=== PATIENT | male | born 1965 | race Asian ===

== ENCOUNTER 2019-09-18 10:03 | Inpatient (IN) | payer MEDICAID ==
[~2019-09-18] VITALS: Ht 170.2 cm; Wt 81.4 kg
--- NOTE | 2019-09-18 09:52 | Emergency Room Report ---
History of Present Illness General Source: Patient, EMS Present Illness HPI Patient is a 53-year-old male presents after increased cough and difficulty with breathing. Patient had onset of symptoms approximately 2 weeks. He had no prior medical history. Does not take any medications regularly. Worsening difficulty breathing with supine position. Brought in by EMS.No recent travel. Allergies: Coded Allergies: No Known Allergies (Unverified , 09/18/19) Patient History Reviewed Nursing Documentation: PMH: Agreed; PSxH: Agreed Review of Systems All Other Systems: negative except mentioned in HPI Physical Exam Sp02 EP Interpretation: reviewed, normal General Appearance: normal inspection, well appearing, no apparent distress, alert, GCS 15, non-toxic Head: atraumatic ENT: normal ENT inspection, hearing grossly normal, normal voice Neck: normal inspection, full range of motion, supple, no bony tend Respiratory: no retraction, crackles - bibasilar Cardiovascular #1: no edema, tachycardia Gastrointestinal: normal inspection, normal bowel sounds, non tender, soft, no guarding, no hernia Genitourinary: no CVA tenderness Musculoskeletal: normal inspection, back normal, normal range of motion Neurologic: alert, responsive, speech normal, normal inspection Psychiatric: normal inspection, judgement/insight normal, mood/affect normal Medical Decision Making Diagnostic Impression: Primary Impression: New onset of congestive heart failure Additional Impression: Pleural effusion ER Course Patient presented for cough and increased difficulty with breathing. Differential diagnosis include was not limited to pneumonia, bronchitis, interstitial lung disease, viral respiratory infection among others. Because of complexity of patient's case laboratory tests and imaging studies were ordered. Patient did not have any recent travel. Respiratory infection versus a congestive heart failure. Broad work-up will be initiated. Chest x-ray 1 view read by radiology showed small pleural effusion as well as cardiomegaly. Patient's lung exam did show some bibasilar crackles consistent with new onset CHF. Troponin was noted to be negative. Patient given diuretics as well as nitroglycerin paste. Patient be admitted for further work-up.Dr. Philip Lin was contacted for inpatient management. Labs Test 09/18/19 10:10 White Blood Count 9.1 K/UL (4.8-10.8) Red Blood Count 5.06 M/UL (4.70-6.10) Hemoglobin 15.7 G/DL (14.2-18.0) Hematocrit 47.1 % (42.0-52.0) Mean Corpuscular Volume 93 FL (80-99) Mean Corpuscular Hemoglobin 31.0 PG (27.0-31.0) Mean Corpuscular Hemoglobin Concent 33.3 G/DL (32.0-36.0) Red Cell Distribution Width 11.5 % (11.6-14.8) Platelet Count 250 K/UL (150-450) Mean Platelet Volume 6.0 FL (6.5-10.1) Neutrophils (%) (Auto) 55.9 % (45.0-75.0) Lymphocytes (%) (Auto) 29.0 % (20.0-45.0) Monocytes (%) (Auto) 9.9 % (1.0-10.0) Eosinophils (%) (Auto) 3.5 % (0.0-3.0) Basophils (%) (Auto) 1.6 % (0.0-2.0) Prothrombin Time 11.0 SEC (9.30-11.50) Prothromb Time International Ratio 1.0 (0.9-1.1) Activated Partial Thromboplast Time 33 SEC (23-33) Sodium Level 140 MMOL/L (136-145) Potassium Level 4.3 MMOL/L (3.5-5.1) Chloride Level 105 MMOL/L (98-107) Carbon Dioxide Level 28 MMOL/L (21-32) Anion Gap 7 mmol/L (5-15) Blood Urea Nitrogen 16 mg/dL (7-18) Creatinine 1.3 MG/DL (0.55-1.30) Estimat Glomerular Filtration Rate 58.2 mL/min (>60) Glucose Level 116 MG/DL (74-106) Lactic Acid Level 1.30 mmol/L (0.4-2.0) Calcium Level 8.6 MG/DL (8.5-10.1) Total Bilirubin 1.2 MG/DL (0.2-1.0) Direct Bilirubin 0.3 MG/DL (0.0-0.3) Aspartate Amino Transf (AST/SGOT) 50 U/L (15-37) Alanine Aminotransferase (ALT/SGPT) 57 U/L (12-78) Alkaline Phosphatase 88 U/L (46-116) Total Creatine Kinase 114 U/L (26-308) Creatine Kinase MB 1.9 NG/ML (0.0-3.6) Creatine Kinase MB Relative Index 1.6 Troponin I 0.014 ng/mL (0.000-0.056) Pro-B-Type Natriuretic Peptide 2168 pg/mL (0-125) Total Protein 7.4 G/DL (6.4-8.2) Albumin 3.6 G/DL (3.4-5.0) Globulin 3.8 g/dL Albumin/Globulin Ratio 0.9 (1.0-2.7) EKG Diagnostic Results Rate: tachycardiac Rhythm: NSR ST Segments: no acute changes Status: improved Disposition: ADMITTED INPATIENT Condition: Stable Elmer Ledezma MD Sep 18, 2019 09:52
--- NOTE | 2019-09-18 09:57 | NUR ---
ED Nurse Note: Pt brought into ED by ambulance w/ c/o SOB. Pt has had cold for 2 weeks w/ congestion, non-productive cough, sore throat. Pt says his SOB started last night and was worse this morning. Pt denies nausea or vomiting or diarrhea. Pt has not been to [place]. Pt set up on monitor.
[2019-09-18] MEDS ORDERED: Guaifenesin/DM 10ml syrup ORAL ONE (10:15)
[2019-09-18 10:17] VITALS: BP 149/99
[2019-09-18 10:29] LABS: BASOPHILS % (AUTO) 1.6 % (0.0-2.0); EOSINOPHILS % (AUTO) 3.5 % (0.0-3.0); HEMATOCRIT 47.1 % (42.0-52.0); HEMOGLOBIN 15.7 G/DL (14.2-18.0); MEAN CORPUSCULAR VOLUME 93 FL (80-99); MONOCYTES % (AUTO) 9.9 % (1.0-10.0); NEUTROPHILS % (AUTO) 55.9 % (45.0-75.0); PLATELET COUNT 250 K/UL (150-450); RED BLOOD COUNT 5.06 M/UL (4.70-6.10); RED CELL DISTRIBUTION WIDTH 11.5 % (11.6-14.8); WHITE BLOOD COUNT 9.1 K/UL (4.8-10.8)
[2019-09-18 10:45] LABS: ANION GAP 7 mmol/L (5-15); BLOOD UREA NITROGEN 16 mg/dL (7-18); CALCIUM 8.6 MG/DL (8.5-10.1); CARBON DIOXIDE 28 MMOL/L (21-32); CHLORIDE 105 MMOL/L (98-107); CREATININE 1.3 MG/DL (0.55-1.30); POTASSIUM 4.3 MMOL/L (3.5-5.1); SODIUM 140 MMOL/L (136-145)
[2019-09-18 11:00] LABS: ALANINE AMINOTRANSFERASE 57 U/L (12-78); ALBUMIN 3.6 G/DL (3.4-5.0); ALBUMIN/GLOBULIN RATIO 0.9 (1.0-2.7); ALKALINE PHOSPHATASE 88 U/L (46-116); ASPARTATE AMINO TRANSFERASE 50 U/L (15-37); BILIRUBIN,TOTAL 1.2 MG/DL (0.2-1.0); CKMB 1.9 NG/ML (0.0-3.6); CREATINE KINASE 114 U/L (26-308)
[2019-09-18 11:02] LABS: BILIRUBIN,DIRECT 0.3 MG/DL (0.0-0.3)
--- NOTE | 2019-09-18 11:11 | Diagnostic Imaging Report ---
EXAM: XR Chest, 1 View CLINICAL HISTORY: SOB TECHNIQUE: Frontal view of the chest. COMPARISON: None FINDINGS: Hardware: None. Lungs/pleura: Pulmonary vasculature congestion. Small left pleural effusion. No focal consolidation. Heart/mediastinum: Enlarged cardiomediastinal silhouette. Soft tissues: Unremarkable. Bones: No acute fracture. Upper abdomen: Normal. IMPRESSION: Enlargement of the cardiomediastinal silhouette with pulmonary vasculature congestion and small left pleural effusion.
[2019-09-18] MEDS ORDERED: Nitroglycerin 2% oint pkt TOPIC ONE (11:15)
--- NOTE | 2019-09-18 12:03 | NUR ---
ED Nurse Note: SENT DOWN URINE SPECIMEN. TURNED OFF LIGHT TO REDUCE ENVIRONMENTAL STIMULUS TO PROMOTE RELAXATION. VSS. NO S/S OF ACUTE DISTRESS NOTED AT THIS TIME
[2019-09-18 12:31] LABS: APPEARANCE,URINE CLEAR; BILIRUBIN, URINE NEGATIVE (NEGATIVE); GLUCOSE, URINE (UA) NEGATIVE (NEGATIVE); KETONES,URINE NEGATIVE (NEGATIVE); LEUKOCYTE ESTERASE ,URINE NEGATIVE (NEGATIVE); NITRITE,URINE NEGATIVE (NEGATIVE); PH,URINE 6 (4.5-8.0); PROTEIN,URINE 2+ (NEGATIVE); UROBILINOGEN,URINE NORMAL MG/DL (0.0-1.0)
[2019-09-18 12:32] LABS: COLOR,URINE YELLOW
--- NOTE | 2019-09-18 13:40 | NUR ---
ED Nurse Note: Pt cleared by MD to be transferred. Pt is alert and oriented, set up on monitor. Pt took all belongings. TERESA Topete received her.
--- NOTE | 2019-09-18 13:50 | NUR ---
NURSE NOTES: Patient was admitted from ED via gurney. AAO x 4. Bulgarian Speaking. On RA. No c/o of distress/pain at this moment. IV on LAC 20g noted. Belongings were accounted. Orientation on new unit given. Paged dr. Lin for admission orders and awaiting for return call. Side rails x 2. Call light within reach. Will continue to monitor
--- NOTE | 2019-09-18 14:28 | Cardiology Progress Note ---
Subjective Subjective [id number] Objective Last 24 Hour Vital Signs Date Time Temp Pulse Resp B/P (MAP) Pulse Ox O2 Delivery O2 Flow Rate FiO2 09/18/19 14:00 Room Air 09/18/19 13:40 98.5 95 16 122/76 99 Room Air 09/18/19 11:23 156/105 09/18/19 10:17 103 24 Room Air 99 09/18/19 10:17 98.8 103 24 149/99 99 Room Air 09/18/19 09:47 98.8 106 22 156/105 (122) 100 Room Air Laboratory Tests Test 09/18/19 10:10 09/18/19 12:02 White Blood Count 9.1 K/UL (4.8-10.8) Red Blood Count 5.06 M/UL (4.70-6.10) Hemoglobin 15.7 G/DL (14.2-18.0) Hematocrit 47.1 % (42.0-52.0) Mean Corpuscular Volume 93 FL (80-99) Mean Corpuscular Hemoglobin 31.0 PG (27.0-31.0) Mean Corpuscular Hemoglobin Concent 33.3 G/DL (32.0-36.0) Red Cell Distribution Width 11.5 % (11.6-14.8) L Platelet Count 250 K/UL (150-450) Mean Platelet Volume 6.0 FL (6.5-10.1) L Neutrophils (%) (Auto) 55.9 % (45.0-75.0) Lymphocytes (%) (Auto) 29.0 % (20.0-45.0) Monocytes (%) (Auto) 9.9 % (1.0-10.0) Eosinophils (%) (Auto) 3.5 % (0.0-3.0) H Basophils (%) (Auto) 1.6 % (0.0-2.0) Prothrombin Time 11.0 SEC (9.30-11.50) Prothromb Time International Ratio 1.0 (0.9-1.1) Activated Partial Thromboplast Time 33 SEC (23-33) Sodium Level 140 MMOL/L (136-145) Potassium Level 4.3 MMOL/L (3.5-5.1) Chloride Level 105 MMOL/L (98-107) Carbon Dioxide Level 28 MMOL/L (21-32) Anion Gap 7 mmol/L (5-15) Blood Urea Nitrogen 16 mg/dL (7-18) Creatinine 1.3 MG/DL (0.55-1.30) Estimat Glomerular Filtration Rate 58.2 mL/min (>60) Glucose Level 116 MG/DL (74-106) H Lactic Acid Level 1.30 mmol/L (0.4-2.0) Calcium Level 8.6 MG/DL (8.5-10.1) Total Bilirubin 1.2 MG/DL (0.2-1.0) H Direct Bilirubin 0.3 MG/DL (0.0-0.3) Aspartate Amino Transf (AST/SGOT) 50 U/L (15-37) H Alanine Aminotransferase (ALT/SGPT) 57 U/L (12-78) Alkaline Phosphatase 88 U/L (46-116) Total Creatine Kinase 114 U/L (26-308) Creatine Kinase MB 1.9 NG/ML (0.0-3.6) Creatine Kinase MB Relative Index 1.6 Troponin I 0.014 ng/mL (0.000-0.056) Pro-B-Type Natriuretic Peptide 2168 pg/mL (0-125) H Total Protein 7.4 G/DL (6.4-8.2) Albumin 3.6 G/DL (3.4-5.0) Globulin 3.8 g/dL Albumin/Globulin Ratio 0.9 (1.0-2.7) L Urine Color Yellow Urine Appearance Clear Urine pH 6 (4.5-8.0) Urine Specific [place] 1.015 (1.005-1.035) Urine Protein 2+ (NEGATIVE) H Urine Glucose (UA) Negative (NEGATIVE) Urine Ketones Negative (NEGATIVE) Urine Blood 2+ (NEGATIVE) H Urine Nitrite Negative (NEGATIVE) Urine Bilirubin Negative (NEGATIVE) Urine Urobilinogen Normal MG/DL (0.0-1.0) Urine Leukocyte Esterase Negative (NEGATIVE) Urine RBC 0-2 /HPF (0 - 0) H Urine WBC 0-2 /HPF (0 - 0) Urine Squamous Epithelial Cells Occasional /LPF Urine Bacteria None /HPF (NONE) Microbiology Date/Time Source Procedure Growth Status 09/18/19 10:10 Nasal Nares - Final Complete 09/18/19 10:10 Nasal Nares - Final Complete Zahra Solomon MD Sep 18, 2019 14:28
[2019-09-18] MEDS: Aspirin Baby 81mg ORAL SCH (14:44)
[2019-09-18] MEDS: Lisinopril 2.5mg tab ORAL SCH (14:44)
[2019-09-18] MEDS ORDERED: Albuterol/Ipratropium 3ml neb HHN PRN (15:30)
[2019-09-18] MEDS: Docusate 100mg cap ORAL SCH (17:24)
[2019-09-18 17:51] LABS: CHOLESTEROL 166 MG/DL (< 200); HDL CHOLESTEROL 32 MG/DL (40-60); TRIGLYCERIDES 129 MG/DL (30-150)
--- NOTE | 2019-09-18 18:15 | Consultation ---
DATE OF CONSULTATION: 09/18/2019 CARDIOLOGY CONSULTATION CONSULTING PHYSICIAN: Zahra Solomon M.D. REASON FOR EVALUATION: Shortness of breath. This was done as a coverage for Dr. Abhijit Robledo. HISTORY OF PRESENT ILLNESS: History of present illness taken from the patient. The patient reported that he had a cold 2 weeks ago with fever and probably some mild cough, but then since yesterday, he could not breathe. He had shortness of breath. He was sitting up in of sleeping. He denied any chest pain. There is no syncope. There are no previous similar episodes. The patient is a poor historian. HABITS: He smokes 1 pack a day. No history of drinking alcohol or drug abuse. ALLERGIES: None reported. MEDICATIONS: None. SOCIAL HISTORY: He was not regularly following by his doctor. REVIEW OF SYSTEMS: Otherwise is negative. There is no syncope. There is no wheezing. There is no hemoptysis. There is no fever at the present time. No chills. No rash. No abdominal pain. PHYSICAL EXAMINATION: GENERAL: The patient is resting. He appears to be pretty comfortable. VITAL SIGNS: His blood pressure is 150/100 initially and then it went down to 122/76. His heart rate went down to 95 from 103. He was afebrile. Oxygen saturation on room air is 99%. HEENT: PERRLA. EOMI. NECK: Supple. He has jugular venous distention approximately 10 cm above the angle of Rashaad at 30 degrees. LUNGS: He has crackles bilaterally at bases mostly. There is no wheezing. HEART: His PMI is in the sixth intercostal space in the anterior axillary line. His heart rate is high. There is positive S4 and there is physiologic split accented A2. ABDOMEN: Soft. There is no liver palpable. No hepatosplenomegaly. No masses. Bowel sounds are present. EXTREMITIES: Lower extremities, no edema. Distal pulses palpable. LABORATORY AND DIAGNOSTIC DATA: His EKG shows LVH, sinus rhythm. Chest x-ray showed cardiomegaly with pulmonary venous congestion. His proBNP was 2168. Troponin was 0.014. Rest of his chemistry was unremarkable. His glucose was 116 and lactic acid was 1.3. His white count was 9, hemoglobin 15.7, and platelets were 250,000. IMPRESSION AND RECOMMENDATION: This patient has shortness of breath, most likely due to heart failure new-onset. The patient also has clinical evidence of heart failure and chest x-ray confirmation. The etiology is not clear. He might have uncontrolled hypertension for a while because he was not following it. He might have coronary artery disease as well. We are going to check his lipid panel, going to continue diuresis, going to start him on NAMITA inhibitor and give him aspirin, and will go from there. Thank you for your consultation. Zahra Solomon M.D. DR: Cassy JOB#: [id number] CC:
--- NOTE | 2019-09-18 19:23 | NUR ---
HAND-OFF: Report given to TERESA Grace.
--- NOTE | 2019-09-18 19:30 | NUR ---
NURSE NOTES: Patient was received from TERESA Woods. Pt is AAO x 4. Hebrew Speaking. On RA. No c/o of distress/pain at this moment. IV on LAC 20g patent. Side rails x 2. Call light within reach. Will continue to monitor
--- NOTE | 2019-09-18 19:41 | Pulmonology Progress Note ---
Assessment/Plan Assessment/Plan Pulmonary Consultation HPI Patient is a 53-year-old man admitted with new onset Congestive Heart Failure, complained of increased cough and difficulty with breathing, started after URTI. Patient had onset of symptoms approximately 2 weeks. He had no prior medical history. Does not take any medications regularly. Worsening difficulty breathing with supine position. No recent travel. Denies chest pain, no hemoptysis. Allergies: No Known Allergies Past Medical History: None noted All Other Systems: negative except mentioned in HPI Physical Exam Vital Signs Noted General Appearance: normal inspection, well appearing, no apparent distress, alert, GCS 15, non-toxic Head: atraumatic ENT: normal ENT inspection, hearing grossly normal, normal voice, moist mm Neck: normal inspection, no masses, supple, no tenderness, elevated JVP Respiratory: no retraction, crackles - bibasilar Cardiovascular: HS1, HS2 normal, HS4, tachycardia Gastrointestinal: normal inspection, normal bowel sounds, non tender, soft, no guarding, no hernia Genitourinary: no CVA tenderness Musculoskeletal: normal inspection, back normal, normal range of motion, no edema Neurologic: alert, responsive, speech normal, normal inspection Impression: New onset of congestive heart failure Recent URTI No focal infiltrates on CXR Small left pleural effusion Plan Diurese PRN O2 PRN Aferload reduction per Cardiology Viral upper respiratory analysis HHN PRN PO Doxycline given recent URTI Monitor labs PPX Cardiac Diet Labs Test 09/18/19 10:10 White Blood Count 9.1 K/UL (4.8-10.8) Red Blood Count 5.06 M/UL (4.70-6.10) Hemoglobin 15.7 G/DL (14.2-18.0) Hematocrit 47.1 % (42.0-52.0) Mean Corpuscular Volume 93 FL (80-99) Mean Corpuscular Hemoglobin 31.0 PG (27.0-31.0) Mean Corpuscular Hemoglobin Concent 33.3 G/DL (32.0-36.0) Red Cell Distribution Width 11.5 % (11.6-14.8) Platelet Count 250 K/UL (150-450) Mean Platelet Volume 6.0 FL (6.5-10.1) Neutrophils (%) (Auto) 55.9 % (45.0-75.0) Lymphocytes (%) (Auto) 29.0 % (20.0-45.0) Monocytes (%) (Auto) 9.9 % (1.0-10.0) Eosinophils (%) (Auto) 3.5 % (0.0-3.0) Basophils (%) (Auto) 1.6 % (0.0-2.0) Prothrombin Time 11.0 SEC (9.30-11.50) Prothromb Time International Ratio 1.0 (0.9-1.1) Activated Partial Thromboplast Time 33 SEC (23-33) Sodium Level 140 MMOL/L (136-145) Potassium Level 4.3 MMOL/L (3.5-5.1) Chloride Level 105 MMOL/L (98-107) Carbon Dioxide Level 28 MMOL/L (21-32) Anion Gap 7 mmol/L (5-15) Blood Urea Nitrogen 16 mg/dL (7-18) Creatinine 1.3 MG/DL (0.55-1.30) Estimat Glomerular Filtration Rate 58.2 mL/min (>60) Glucose Level 116 MG/DL (74-106) Lactic Acid Level 1.30 mmol/L (0.4-2.0) Calcium Level 8.6 MG/DL (8.5-10.1) Total Bilirubin 1.2 MG/DL (0.2-1.0) Direct Bilirubin 0.3 MG/DL (0.0-0.3) Aspartate Amino Transf (AST/SGOT) 50 U/L (15-37) Alanine Aminotransferase (ALT/SGPT) 57 U/L (12-78) Alkaline Phosphatase 88 U/L (46-116) Total Creatine Kinase 114 U/L (26-308) Creatine Kinase MB 1.9 NG/ML (0.0-3.6) Creatine Kinase MB Relative Index 1.6 Troponin I 0.014 ng/mL (0.000-0.056) Pro-B-Type Natriuretic Peptide 2168 pg/mL (0-125) Total Protein 7.4 G/DL (6.4-8.2) Albumin 3.6 G/DL (3.4-5.0) Globulin 3.8 g/dL Albumin/Globulin Ratio 0.9 (1.0-2.7) EKG: Rate: tachycardiac Rhythm: NSR ST Segments: no acute changes CXR: Cardiomegaly, Pulmonary Vascular congestion, small left effusion Subjective ROS Limited/Unobtainable: No Respiratory: Reports: shortness of breath Allergies: Coded Allergies: No Known Allergies (Unverified , 09/18/19) Objective Last 24 Hour Vital Signs Date Time Temp Pulse Resp B/P (MAP) Pulse Ox O2 Delivery O2 Flow Rate FiO2 09/18/19 16:00 89 09/18/19 16:00 1.0 09/18/19 14:44 135/80 09/18/19 14:00 Room Air 09/18/19 13:40 98.5 95 16 122/76 99 Room Air 09/18/19 11:23 156/105 09/18/19 10:17 103 24 Room Air 99 09/18/19 10:17 98.8 103 24 149/99 99 Room Air 09/18/19 09:47 98.8 106 22 156/105 (122) 100 Room Air Microbiology Date/Time Source Procedure Growth Status 09/18/19 15:50 Nasal Nares - Final Complete 09/18/19 15:50 Nasal Nares - Final Complete 09/18/19 10:10 Nasal Nares - Final Complete 09/18/19 10:10 Nasal Nares - Final Complete Laboratory Tests 09/18/19 10:10: White Blood Count 9.1, Red Blood Count 5.06, Hemoglobin 15.7, Hematocrit 47.1, Mean Corpuscular Volume 93, Mean Corpuscular Hemoglobin 31.0, Mean Corpuscular Hemoglobin Concent 33.3, Red Cell Distribution Width 11.5L, Platelet Count 250, Mean Platelet Volume 6.0L, Neutrophils (%) (Auto) 55.9, Lymphocytes (%) (Auto) 29.0, Monocytes (%) (Auto) 9.9, Eosinophils (%) (Auto) 3.5H, Basophils (%) (Auto ) 1.6, Prothrombin Time 11.0, Prothromb Time International Ratio 1.0, Activated Partial Thromboplast Time 33, Sodium Level 140, Potassium Level 4.3, Chloride Level 105, Carbon Dioxide Level 28, Anion Gap 7, Blood Urea Nitrogen 16, Creatinine 1.3, Estimat Glomerular Filtration Rate 58.2, Glucose Level 116H, Lactic Acid Level 1.30, Calcium Level 8.6, Total Bilirubin 1.2H, Direct Bilirubin 0.3, Aspartate Amino Transf (AST/SGOT) 50H, Alanine Aminotransferase ( ALT/SGPT) 57, Alkaline Phosphatase 88, Total Creatine Kinase 114, Creatine Kinase MB 1.9, Creatine Kinase MB Relative Index 1.6, Troponin I 0.014, Pro-B- Type Natriuretic Peptide 2168H, Total Protein 7.4, Albumin 3.6, Globulin 3.8, Albumin/Globulin Ratio 0.9L 09/18/19 12:02: Urine Color Yellow, Urine Appearance Clear, Urine pH 6, Urine Specific [place] 1.015, Urine Protein 2+H, Urine Glucose (UA) Negative, Urine Ketones Negative, Urine Blood 2+H, Urine Nitrite Negative, Urine Bilirubin Negative, Urine Urobilinogen Normal, Urine Leukocyte Esterase Negative, Urine RBC 0-2H, Urine WBC 0-2, Urine Squamous Epithelial Cells Occasional, Urine Bacteria None 09/18/19 17:08: Troponin I 0.024, Triglycerides Level 129, Cholesterol Level 166, LDL Cholesterol 114H, HDL Cholesterol 32L, Cholesterol/HDL Ratio 5.2H Current Medications Medications (Trade) Dose Ordered Sig/Livier Route PRN Reason Start Time Stop Time Status Last Admin Dose Admin Acetaminophen (Tylenol) 650 mg Q4H PRN ORAL Mild Pain/Temp > 100.5 09/18/19 17:45 10/18/19 17:44 09/18/19 17:59 Albuterol/ Ipratropium (Albuterol/ Ipratropium) 3 ml Q6H PRN HHN Shortness of Breath 09/18/19 15:30 09/23/19 15:29 Aspirin (ASA) 81 mg DAILY ORAL 09/18/19 14:30 10/18/19 14:29 09/18/19 14:44 Docusate Sodium (Colace) 100 mg TWICE A DAY ORAL 09/18/19 18:00 10/18/19 17:59 Furosemide (Lasix) 40 mg DAILY IV 09/19/19 09:00 10/19/19 08:59 Heparin Sodium (Porcine) (Heparin 5000 units/ml) 5,000 units EVERY 12 HOURS SUBQ 09/18/19 21:00 10/18/19 20:59 Lisinopril (ZestriL) 2.5 mg DAILY ORAL 09/18/19 14:30 10/18/19 14:29 09/18/19 14:44 Cole Ponce MD Sep 18, 2019 19:41
[2019-09-18 20:00] VITALS: BP 126/91
[2019-09-18] MEDS: Heparin 5000 units/ml inj SUBQ SCH (20:44)
[2019-09-19] VITALS: BP 128/92
[2019-09-19 01:30] LABS: ANION GAP 10 mmol/L (5-15); BLOOD UREA NITROGEN 19 mg/dL (7-18); CALCIUM 8.4 MG/DL (8.5-10.1); CARBON DIOXIDE 27 MMOL/L (21-32); CHLORIDE 104 MMOL/L (98-107); CREATININE 1.3 MG/DL (0.55-1.30); POTASSIUM 3.7 MMOL/L (3.5-5.1); SODIUM 141 MMOL/L (136-145)
[2019-09-19 01:32] LABS: BASOPHILS % (AUTO) 1.2 % (0.0-2.0); EOSINOPHILS % (AUTO) 4.5 % (0.0-3.0); HEMATOCRIT 44.1 % (42.0-52.0); HEMOGLOBIN 15.3 G/DL (14.2-18.0); MEAN CORPUSCULAR VOLUME 91 FL (80-99); MONOCYTES % (AUTO) 10.4 % (1.0-10.0); PLATELET COUNT 231 K/UL (150-450); RED BLOOD COUNT 4.83 M/UL (4.70-6.10); RED CELL DISTRIBUTION WIDTH 11.3 % (11.6-14.8); WHITE BLOOD COUNT 9.4 K/UL (4.8-10.8)
[2019-09-19 04:00] VITALS: BP 146/97
--- NOTE | 2019-09-19 07:50 | NUR ---
HAND-OFF: Report given to Chuck Baugh RN.
--- NOTE | 2019-09-19 07:53 | NUR ---
NURSE NOTES: Received pt in bed, sleeping. On NC 2L/min. No s/s of distress/pain. IV on LAC 20g noted. Side rails x2. Bed in the lowest and locked. Call light within reach. Will continue to monitor
[2019-09-19 08:00] VITALS: BP 124/93
--- NOTE | 2019-09-19 08:50 | CDS Physician Query ---
Clarification is required for compliance, coding accuracy, and to reflect severity of illness for this patient Dear Dr. Solomon Date: 09.19.19 CDS: Fariha Edwards "Heart Failure / CHF" documented in the cardiology progress note. Patient given 40 mg of IV Lasix. Please Clarify: Acuity [ ] Acute [ ] Chronic [ ] Acute on Chronic Type [ ] Systolic [ ] Diastolic [ ] Systolic & Diastolic (Combined) [ ] Other: Present on Admission: [ ] Yes [ ] No [ ] Clinically Undetermined Physician signature Date Please also document in your Progress Notes and/or Discharge Summary and indicate if the condition was present on admission. ALEJANDRINAD
[2019-09-19] MEDS: Lisinopril 2.5mg tab ORAL SCH (09:06)
[2019-09-19] MEDS: Docusate 100mg cap ORAL SCH ×2 (09:06→17:18)
[2019-09-19] MEDS: Aspirin Baby 81mg ORAL SCH (09:07)
[2019-09-19] MEDS: Heparin 5000 units/ml inj SUBQ SCH ×2 (09:08→21:42)
--- NOTE | 2019-09-19 11:40 | NUR ---
PT EVALUATION/DISCHARGE NOTE Patient seen for initial evaluation. Patient demonstrates independence with bed mobility, transfers and ambulation without an assistive device. Gait is steady without deviations noted. Skilled inpatient PT intervention is not indicated as patient is independent with all functional mobility. Patient discharged from PT, Chuck MOORE notified. Addendum: 09/19/19 at 1250 by MARLEE GONZALES PT Amended: Links added.
--- NOTE | 2019-09-19 11:46 | Pulmonology Progress Note ---
Assessment/Plan Problems: (1) New onset of congestive heart failure (2) Cardiac LV ejection fraction 21-30% (3) Pleural effusion (4) COPD (chronic obstructive pulmonary disease) Assessment/Plan respiratory treatment titrate fio2 to sat of 92% titrate cardiac meds might need cardiac cath. Subjective ROS Limited/Unobtainable: No Interval Events: feeling better Allergies: Coded Allergies: No Known Allergies (Unverified , 09/18/19) Objective Last 24 Hour Vital Signs Date Time Temp Pulse Resp B/P (MAP) Pulse Ox O2 Delivery O2 Flow Rate FiO2 09/19/19 09:06 124/93 09/19/19 09:00 Nasal Cannula 1.0 09/19/19 08:00 97.5 75 20 124/93 (103) 97 09/19/19 08:00 79 09/19/19 08:00 2.0 09/19/19 07:01 95 Nasal Cannula 1.0 24 09/19/19 04:00 98.5 84 20 146/97 (113) 95 09/19/19 04:00 99 09/19/19 03:29 1.0 09/19/19 00:00 1.0 09/19/19 00:00 88 09/19/19 00:00 98.6 92 18 128/92 (104) 95 09/18/19 21:00 Nasal Cannula 1.0 09/18/19 20:00 95 09/18/19 20:00 1.0 09/18/19 20:00 97.2 87 16 126/91 (103) 94 09/18/19 16:00 89 09/18/19 16:00 1.0 09/18/19 14:44 135/80 09/18/19 14:00 Room Air 09/18/19 13:40 98.5 95 16 122/76 99 Room Air Intake and Output 09/18/19 09/19/19 19:00 07:00 Intake Total 0 ml 360 ml Balance 0 ml 360 ml Intake Oral 0 ml 360 ml # Voids 4 General Appearance: WD/WN HEENT: normocephalic, atraumatic Respiratory/Chest: chest wall non-tender, lungs clear Cardiovascular: normal peripheral pulses, normal rate Abdomen: normal bowel sounds, no organomegaly Extremities: no cyanosis Skin: no rash Microbiology Date/Time Source Procedure Growth Status 09/18/19 15:50 Nasal Nares - Final Complete 09/18/19 15:50 Nasal Nares - Final Complete 09/18/19 10:10 Nasal Nares - Final Complete 09/18/19 10:10 Nasal Nares - Final Complete Laboratory Tests 09/18/19 12:02: Urine Color Yellow, Urine Appearance Clear, Urine pH 6, Urine Specific [place] 1.015, Urine Protein 2+H, Urine Glucose (UA) Negative, Urine Ketones Negative, Urine Blood 2+H, Urine Nitrite Negative, Urine Bilirubin Negative, Urine Urobilinogen Normal, Urine Leukocyte Esterase Negative, Urine RBC 0-2H, Urine WBC 0-2, Urine Squamous Epithelial Cells Occasional, Urine Bacteria None 09/18/19 17:08: Troponin I 0.024, Triglycerides Level 129, Cholesterol Level 166, LDL Cholesterol 114H, HDL Cholesterol 32L, Cholesterol/HDL Ratio 5.2H 09/19/19 01:00: Troponin I 0.017, White Blood Count 9.4, Red Blood Count 4.83, Hemoglobin 15.3, Hematocrit 44.1, Mean Corpuscular Volume 91, Mean Corpuscular Hemoglobin 31.6H, Mean Corpuscular Hemoglobin Concent 34.6, Red Cell Distribution Width 11.3L, Platelet Count 231, Mean Platelet Volume 5.8L, Neutrophils (%) (Auto) 52.0, Lymphocytes (%) (Auto) 32.0, Monocytes (%) (Auto) 10.4H, Eosinophils (%) (Auto) 4.5H, Basophils (%) (Auto) 1.2, Sodium Level 141, Potassium Level 3.7, Chloride Level 104, Carbon Dioxide Level 27, Anion Gap 10, Blood Urea Nitrogen 19H, Creatinine 1.3, Estimat Glomerular Filtration Rate 58.2, Glucose Level 113H, Calcium Level 8.4L 09/19/19 08:45: Troponin I 0.017 Current Medications Medications (Trade) Dose Ordered Sig/Livier Route PRN Reason Start Time Stop Time Status Last Admin Dose Admin Acetaminophen (Tylenol) 650 mg Q4H PRN ORAL Mild Pain/Temp > 100.5 09/18/19 17:45 10/18/19 17:44 09/19/19 04:02 Albuterol/ Ipratropium (Albuterol/ Ipratropium) 3 ml Q6H PRN HHN Shortness of Breath 09/18/19 15:30 09/23/19 15:29 Aspirin (ASA) 81 mg DAILY ORAL 09/18/19 14:30 10/18/19 14:29 09/19/19 09:07 Docusate Sodium (Colace) 100 mg TWICE A DAY ORAL 09/18/19 18:00 10/18/19 17:59 09/19/19 09:06 Furosemide (Lasix) 40 mg DAILY IV 09/19/19 09:00 10/19/19 08:59 09/19/19 09:06 Heparin Sodium (Porcine) (Heparin 5000 units/ml) 5,000 units EVERY 12 HOURS SUBQ 09/18/19 21:00 10/18/19 20:59 09/19/19 09:08 Lisinopril (ZestriL) 2.5 mg DAILY ORAL 09/18/19 14:30 10/18/19 14:29 09/19/19 09:06 Geneva Nieto MD Sep 19, 2019 11:46
[2019-09-19 12:00] VITALS: BP 136/93
--- NOTE | 2019-09-19 13:30 | NUR ---
CASE MANAGEMENT:REVIEW 53 YR OLD MALE PRESENTED TO ER CC: FLU LIKE SYMPTOMS AND SOB SI: NEW ONSET CHF. PLEURAL EFFUSION 98.7 106 22 156/105 100% ON RA GLUCOSE+116 TBILI+1.2 BNP+2168 IS: IV LASIX NITRO 1" TO CW ASA PO CHEST XRAY BLOOD CX : TO TELEMETRY IS: IV LASIX QD HEPARIN SQ Q12 lisinopril po qd asa po qd
--- NOTE | 2019-09-19 14:14 | Consultation ---
History of Present Illness General Date patient seen: Sep 19, 2019 Chief Complaint: Flu Like Symptoms Present Illness HPI 53 y/o M with hx of tobacco abuse presented to ED on 09/18/19 with SOB and cough. About 2 weeks ago patient had fever, mild cough. Denied chest pain, abd pain. Allergies: Coded Allergies: No Known Allergies (Unverified , 09/18/19) Medication History No Active Prescriptions or Reported Meds Patient History Healthcare decision maker Resuscitation status Full Code Advanced Directive on File Patient History Narrative Pmhx: as above Shx: He smokes 1 pack a day. No history of drinking alcohol or drug abuse. Fhx: non contributory Review of Systems All Other Systems: negative except mentioned in HPI Physical Exam Physical Exam Narrative GENERAL: The patient is resting. He appears to be pretty comfortable. HEENT: PERRLA. EOMI. NECK: Supple. He has jugular venous distention approximately 10 cm above the angle of Rashaad at 30 degrees. LUNGS: He has crackles bilaterally at bases mostly. There is no wheezing. HEART: His PMI is in the sixth intercostal space in the anterior axillary line. His heart rate is high. There is positive S4 and there is physiologic split accented A2. ABDOMEN: Soft. There is no liver palpable. No hepatosplenomegaly. No masses. Bowel sounds are present. EXTREMITIES: Lower extremities, no edema. Distal pulses palpable. Last 24 Hour Vital Signs Date Time Temp Pulse Resp B/P (MAP) Pulse Ox O2 Delivery O2 Flow Rate FiO2 09/19/19 12:00 97.3 85 20 136/93 (107) 98 09/19/19 12:00 94 09/19/19 12:00 2.0 09/19/19 09:06 124/93 09/19/19 09:00 Nasal Cannula 1.0 09/19/19 08:00 97.5 75 20 124/93 (103) 97 09/19/19 08:00 79 09/19/19 08:00 2.0 09/19/19 07:01 95 Nasal Cannula 1.0 24 09/19/19 04:00 98.5 84 20 146/97 (113) 95 09/19/19 04:00 99 09/19/19 03:29 1.0 09/19/19 00:00 1.0 09/19/19 00:00 88 09/19/19 00:00 98.6 92 18 128/92 (104) 95 09/18/19 21:00 Nasal Cannula 1.0 09/18/19 20:00 95 09/18/19 20:00 1.0 09/18/19 20:00 97.2 87 16 126/91 (103) 94 09/18/19 16:00 89 09/18/19 16:00 1.0 09/18/19 14:44 135/80 09/18/19 14:00 Room Air Intake and Output 09/18/19 09/19/19 19:00 07:00 Intake Total 0 ml 360 ml Balance 0 ml 360 ml Intake Oral 0 ml 360 ml # Voids 4 Laboratory Tests Test 09/18/19 17:08 09/19/19 01:00 09/19/19 08:45 Troponin I 0.024 ng/mL (0.000-0.056) 0.017 ng/mL (0.000-0.056) 0.017 ng/mL (0.000-0.056) Triglycerides Level 129 MG/DL (30-150) Cholesterol Level 166 MG/DL (< 200) LDL Cholesterol 114 mg/dL (<100) H HDL Cholesterol 32 MG/DL (40-60) L Cholesterol/HDL Ratio 5.2 (3.3-4.4) H White Blood Count 9.4 K/UL (4.8-10.8) Red Blood Count 4.83 M/UL (4.70-6.10) Hemoglobin 15.3 G/DL (14.2-18.0) Hematocrit 44.1 % (42.0-52.0) Mean Corpuscular Volume 91 FL (80-99) Mean Corpuscular Hemoglobin 31.6 PG (27.0-31.0) H Mean Corpuscular Hemoglobin Concent 34.6 G/DL (32.0-36.0) Red Cell Distribution Width 11.3 % (11.6-14.8) L Platelet Count 231 K/UL (150-450) Mean Platelet Volume 5.8 FL (6.5-10.1) L Neutrophils (%) (Auto) 52.0 % (45.0-75.0) Lymphocytes (%) (Auto) 32.0 % (20.0-45.0) Monocytes (%) (Auto) 10.4 % (1.0-10.0) H Eosinophils (%) (Auto) 4.5 % (0.0-3.0) H Basophils (%) (Auto) 1.2 % (0.0-2.0) Sodium Level 141 MMOL/L (136-145) Potassium Level 3.7 MMOL/L (3.5-5.1) Chloride Level 104 MMOL/L (98-107) Carbon Dioxide Level 27 MMOL/L (21-32) Anion Gap 10 mmol/L (5-15) Blood Urea Nitrogen 19 mg/dL (7-18) H Creatinine 1.3 MG/DL (0.55-1.30) Estimat Glomerular Filtration Rate 58.2 mL/min (>60) Glucose Level 113 MG/DL (74-106) H Calcium Level 8.4 MG/DL (8.5-10.1) L Microbiology Date/Time Source Procedure Growth Status 09/18/19 15:50 Nasal Nares - Final Complete 09/18/19 15:50 Nasal Nares - Final Complete Height (Feet): 5 Height (Inches): 7.00 Weight (Pounds): 150 Medications Current Medications Medications (Trade) Dose Ordered Sig/Livier Route PRN Reason Start Time Stop Time Status Last Admin Dose Admin Acetaminophen (Tylenol) 650 mg Q4H PRN ORAL Mild Pain/Temp > 100.5 09/18/19 17:45 10/18/19 17:44 09/19/19 04:02 Albuterol/ Ipratropium (Albuterol/ Ipratropium) 3 ml Q6H PRN HHN Shortness of Breath 09/18/19 15:30 09/23/19 15:29 Aspirin (ASA) 81 mg DAILY ORAL 09/18/19 14:30 10/18/19 14:29 09/19/19 09:07 Docusate Sodium (Colace) 100 mg TWICE A DAY ORAL 09/18/19 18:00 10/18/19 17:59 09/19/19 09:06 Furosemide (Lasix) 40 mg DAILY IV 09/19/19 09:00 10/19/19 08:59 09/19/19 09:06 Heparin Sodium (Porcine) (Heparin 5000 units/ml) 5,000 units EVERY 12 HOURS SUBQ 09/18/19 21:00 10/18/19 20:59 09/19/19 09:08 Lisinopril (ZestriL) 2.5 mg DAILY ORAL 09/18/19 14:30 10/18/19 14:29 09/19/19 09:06 Assessment/Plan Assessment/Plan: Abx: None Assessment: Pulmonary congestion, New- onset CHF EF 25-30% -CXR: Enlargement of the cardiomediastinal silhouette with pulmonary vasculature congestion and small left pleural effusion. Afebrile No leukocytosis Tobacco abuse Plan: -Continue to monitor off abx -f/u cx -Monitor CBC/CMP, temperatures -Cards f/u Thank you for this consultation. Will continue to follow along with you. Discussed with Macy Zhou M.D. Sep 19, 2019 14:14
--- NOTE | 2019-09-19 15:30 | History and Physical Report ---
DATE OF ADMISSION: 09/18/2019 DATE AND TIME SEEN: 09/19/2019, approximate time is 9 a.m. CONSULTANTS: 1. Geneva Nieto M.D. 2. Marcus Ponce M.D. 3. Abhijit Robledo M.D. CHIEF COMPLAINT: Shortness of breath, CHF, flu-like symptoms, pleural effusion. BRIEF HISTORY: This is a 53-year-old male who lives at home, presents with 2-day increased shortness of breath and flu-like symptoms. He came to [facility], diagnosed as above, admitted to telemetry for further care. Currently, O2 NC, calm, slight short of breath in bed. No complaint otherwise. REVIEW OF SYSTEMS: No chest pain. Slight short of breath. No nausea, vomiting, or diarrhea. PAST MEDICAL HISTORY: Includes CHF. PAST SURGICAL HISTORY: None. MEDICATIONS: Include furosemide, docusate sodium, Tylenol, albuterol, lisinopril, aspirin. ALLERGIES: Denies. SOCIAL HISTORY: Positive smoking. No alcohol. No intravenous drug abuse. FAMILY HISTORY: Noncontributory. PHYSICAL EXAMINATION: GENERAL: Calm in bed, oriented x2. Slight short of breath. O2 NC in place. VITAL SIGNS: Temperature 97 degrees, pulse 75, respirations 20, blood pressure 124/93. CARDIOVASCULAR: No murmur. LUNGS: Distant and clear. ABDOMEN: Bowel sound positive. Nontender. Nondistended. EXTREMITIES: No cyanosis, clubbing, or edema. NEUROLOGIC: The patient moves all extremities, slightly weak. LABORATORY AND DIAGNOSTIC DATA: Labs at this time show CBC is normal. BMP show BUN 19, glucose 113, calcium 8.4. INR is 1.0, PTT is 33. Urinalysis 2+ blood, 2+ protein. ASSESSMENT: 1. Shortness of breath. 2. CHF. 3. Flu-like symptoms. 4. Pleural effusion. PLAN: 1. O2, pulmonary treatment. 2. Antibiotics per Infectious Disease. 3. Cardiology followup. 4. Dietary followup. 5. PT and dietary evaluation. 6. CBC, BMP in the morning. Philip Lin D.O. DR: MIKE JOB#: [id number] CC:
[2019-09-19 16:00] VITALS: BP 128/73
--- NOTE | 2019-09-19 19:20 | NUR ---
HAND-OFF: Report given to TERESA Grace.
--- NOTE | 2019-09-19 19:30 | NUR ---
NURSE NOTES: Patient was received from TERESA Woods. Pt is AAO x 4. Czech Speaking. On RA. Pt was complaining of headache and given tylenol without relief- contacted MD for pain medication orders. IV on LAC 20g patent. Side rails x 2. Call light within reach. Will continue to monitor
[2019-09-19 20:00] VITALS: BP 109/100
--- NOTE | 2019-09-19 20:48 | Cardiology Progress Note ---
Assessment/Plan Assessment/Plan chf cm mr htn diuretic echo partiall personally reviwed acei increase dose add bb low dose Subjective Cardiovascular: Denies: chest pain, lightheadedness, palpitations Respiratory: Reports: cough; Denies: shortness of breath Gastrointestinal/Abdominal: Denies: abdominal pain Genitourinary: Denies: burning Objective Last 24 Hour Vital Signs Date Time Temp Pulse Resp B/P (MAP) Pulse Ox O2 Delivery O2 Flow Rate FiO2 09/19/19 20:10 98 Nasal Cannula 2.0 28 09/19/19 20:00 97.9 100 20 109/100 (103) 100 09/19/19 20:00 1.0 09/19/19 16:00 92 09/19/19 16:00 96.4 69 20 128/73 (91) 98 09/19/19 16:00 2.0 09/19/19 12:00 97.3 85 20 136/93 (107) 98 09/19/19 12:00 94 09/19/19 12:00 2.0 09/19/19 09:06 124/93 09/19/19 09:00 Nasal Cannula 1.0 09/19/19 08:00 97.5 75 20 124/93 (103) 97 09/19/19 08:00 79 09/19/19 08:00 2.0 09/19/19 07:01 95 Nasal Cannula 1.0 24 09/19/19 04:00 98.5 84 20 146/97 (113) 95 09/19/19 04:00 99 09/19/19 03:29 1.0 09/19/19 00:00 1.0 09/19/19 00:00 88 09/19/19 00:00 98.6 92 18 128/92 (104) 95 09/18/19 21:00 Nasal Cannula 1.0 General Appearance: no apparent distress, alert Neck: no JVD Cardiovascular: normal rate Respiratory/Chest: lungs clear Abdomen: normal bowel sounds, non tender, soft Extremities: no swelling Intake and Output 09/18/19 09/19/19 19:00 07:00 Intake Total 0 ml 360 ml Balance 0 ml 360 ml Intake Oral 0 ml 360 ml # Voids 4 Laboratory Tests Test 09/19/19 01:00 09/19/19 08:45 09/19/19 17:30 White Blood Count 9.4 K/UL (4.8-10.8) Red Blood Count 4.83 M/UL (4.70-6.10) Hemoglobin 15.3 G/DL (14.2-18.0) Hematocrit 44.1 % (42.0-52.0) Mean Corpuscular Volume 91 FL (80-99) Mean Corpuscular Hemoglobin 31.6 PG (27.0-31.0) H Mean Corpuscular Hemoglobin Concent 34.6 G/DL (32.0-36.0) Red Cell Distribution Width 11.3 % (11.6-14.8) L Platelet Count 231 K/UL (150-450) Mean Platelet Volume 5.8 FL (6.5-10.1) L Neutrophils (%) (Auto) 52.0 % (45.0-75.0) Lymphocytes (%) (Auto) 32.0 % (20.0-45.0) Monocytes (%) (Auto) 10.4 % (1.0-10.0) H Eosinophils (%) (Auto) 4.5 % (0.0-3.0) H Basophils (%) (Auto) 1.2 % (0.0-2.0) Sodium Level 141 MMOL/L (136-145) Potassium Level 3.7 MMOL/L (3.5-5.1) Chloride Level 104 MMOL/L (98-107) Carbon Dioxide Level 27 MMOL/L (21-32) Anion Gap 10 mmol/L (5-15) Blood Urea Nitrogen 19 mg/dL (7-18) H Creatinine 1.3 MG/DL (0.55-1.30) Estimat Glomerular Filtration Rate 58.2 mL/min (>60) Glucose Level 113 MG/DL (74-106) H Calcium Level 8.4 MG/DL (8.5-10.1) L Troponin I 0.017 ng/mL (0.000-0.056) 0.017 ng/mL (0.000-0.056) 0.012 ng/mL (0.000-0.056) Microbiology Date/Time Source Procedure Growth Status 09/18/19 15:50 Nasal Nares - Final Complete 09/18/19 15:50 Nasal Nares - Final Complete 09/18/19 10:10 Nasal Nares - Final Complete 09/18/19 10:10 Nasal Nares - Final Complete Abhijit Robledo MD Sep 19, 2019 20:48
[2019-09-19] MEDS ORDERED: HYDROcodone/Acetamin 5/325 tab ORAL PRN (22:00)
[2019-09-20] VITALS (7 sets, daily range): BP systolic 125–144; BP diastolic 94–105
[2019-09-20 07:24] LABS: BASOPHILS % (AUTO) 1.1 % (0.0-2.0); EOSINOPHILS % (AUTO) 5.6 % (0.0-3.0); HEMATOCRIT 44.4 % (42.0-52.0); HEMOGLOBIN 15.3 G/DL (14.2-18.0); MEAN CORPUSCULAR VOLUME 92 FL (80-99); MONOCYTES % (AUTO) 9.6 % (1.0-10.0); NEUTROPHILS % (AUTO) 49.8 % (45.0-75.0); PLATELET COUNT 246 K/UL (150-450); RED BLOOD COUNT 4.82 M/UL (4.70-6.10); RED CELL DISTRIBUTION WIDTH 11.8 % (11.6-14.8); WHITE BLOOD COUNT 8.9 K/UL (4.8-10.8)
--- NOTE | 2019-09-20 07:29 | NUR ---
HAND-OFF: Report given to TERESA Woods.
--- NOTE | 2019-09-20 07:32 | NUR ---
NURSE NOTES: Received pt in bed, AAO x 4. RA. No c/o of pain/distress. IV on LAC 20g intact and patent, with SL. Side rails x 2. Bed in the lowest and locked. Call light within reach. Will continue to monitor
[2019-09-20 08:30] LABS: ALANINE AMINOTRANSFERASE 39 U/L (12-78); ALBUMIN 3.1 G/DL (3.4-5.0); ALBUMIN/GLOBULIN RATIO 0.8 (1.0-2.7); ALKALINE PHOSPHATASE 87 U/L (46-116); ANION GAP 10 mmol/L (5-15); ASPARTATE AMINO TRANSFERASE 19 U/L (15-37); BILIRUBIN,TOTAL 0.6 MG/DL (0.2-1.0); BLOOD UREA NITROGEN 21 mg/dL (7-18); CALCIUM 8.8 MG/DL (8.5-10.1); CARBON DIOXIDE 27 MMOL/L (21-32); CHLORIDE 104 MMOL/L (98-107); CREATININE 1.4 MG/DL (0.55-1.30); POTASSIUM 3.8 MMOL/L (3.5-5.1); SODIUM 141 MMOL/L (136-145)
[2019-09-20] MEDS ORDERED: Lisinopril 10mg tab ORAL SCH (09:00)
[2019-09-20] MEDS: Docusate 100mg cap ORAL SCH ×2 (09:41→17:22)
[2019-09-20] MEDS: Aspirin Baby 81mg ORAL SCH (09:41)
[2019-09-20] MEDS: Heparin 5000 units/ml inj SUBQ SCH ×2 (09:42→21:00)
--- NOTE | 2019-09-20 09:49 | NUR ---
RADIOLOGY DEPT., CHEST X-RAY DONE.-P.DYE
--- NOTE | 2019-09-20 10:56 | Pulmonology Progress Note ---
Assessment/Plan Problems: (1) New onset of congestive heart failure (2) Cardiac LV ejection fraction 21-30% (3) Pleural effusion (4) COPD (chronic obstructive pulmonary disease) Assessment/Plan respiratory treatment titrate fio2 to sat of 92% titrate cardiac meds by cardiology Subjective ROS Limited/Unobtainable: No Interval Events: doing better Constitutional: Reports: no symptoms HEENT: Repors: no symptoms Allergies: Coded Allergies: No Known Allergies (Unverified , 09/18/19) Objective Last 24 Hour Vital Signs Date Time Temp Pulse Resp B/P (MAP) Pulse Ox O2 Delivery O2 Flow Rate FiO2 09/20/19 09:41 93 140/105 09/20/19 09:41 140/105 09/20/19 09:24 98 Nasal Cannula 2.0 28 09/20/19 08:24 Nasal Cannula 1.0 09/20/19 08:00 1.0 09/20/19 08:00 99 09/20/19 08:00 96.7 93 20 140/105 (117) 95 09/20/19 04:22 97.5 90 20 138/100 (113) 94 09/20/19 04:02 84 09/20/19 04:01 1.0 09/20/19 00:00 1.0 09/20/19 00:00 97.0 90 20 143/99 (114) 100 09/20/19 00:00 83 09/19/19 21:42 100 109/100 09/19/19 21:00 Nasal Cannula 1.0 09/19/19 20:10 98 Nasal Cannula 2.0 28 09/19/19 20:00 97.9 100 20 109/100 (103) 100 09/19/19 20:00 1.0 09/19/19 20:00 97 09/19/19 16:00 92 09/19/19 16:00 96.4 69 20 128/73 (91) 98 09/19/19 16:00 2.0 09/19/19 12:00 97.3 85 20 136/93 (107) 98 09/19/19 12:00 94 09/19/19 12:00 2.0 Intake and Output 09/19/19 09/20/19 19:00 07:00 Intake Total 480 ml 400 ml Balance 480 ml 400 ml Intake Oral 480 ml 400 ml # Voids 4 2 General Appearance: WD/WN HEENT: normocephalic, atraumatic Respiratory/Chest: chest wall non-tender, normal breath sounds Cardiovascular: normal peripheral pulses, normal rate Abdomen: normal bowel sounds, no organomegaly Neurologic/Psychiatric: cash accountant II-XII grossly normal Lymphatic: no neck adenopathy Microbiology Date/Time Source Procedure Growth Status 09/18/19 10:10 Blood Blood Culture - Preliminary NO GROWTH AFTER 24 HOURS Resulted 09/18/19 09:55 Blood Blood Culture - Preliminary NO GROWTH AFTER 24 HOURS Resulted 09/18/19 15:50 Nasal Nares - Final Complete 09/18/19 15:50 Nasal Nares - Final Complete 09/18/19 10:10 Nasal Nares - Final Complete 09/18/19 10:10 Nasal Nares - Final Complete Laboratory Tests 09/19/19 17:30: Troponin I 0.012 09/20/19 05:43: White Blood Count 8.9, Red Blood Count 4.82, Hemoglobin 15.3, Hematocrit 44.4, Mean Corpuscular Volume 92, Mean Corpuscular Hemoglobin 31.7H, Mean Corpuscular Hemoglobin Concent 34.4, Red Cell Distribution Width 11.8, Platelet Count 246, Mean Platelet Volume 5.9L, Neutrophils (%) (Auto) 49.8, Lymphocytes (%) (Auto) 34.0, Monocytes (%) (Auto) 9.6, Eosinophils (%) (Auto) 5.6H, Basophils (%) (Auto ) 1.1, Sodium Level 141, Potassium Level 3.8, Chloride Level 104, Carbon Dioxide Level 27, Anion Gap 10, Blood Urea Nitrogen 21H, Creatinine 1.4H, Estimat Glomerular Filtration Rate 53.4, Glucose Level 136H, Calcium Level 8.8, Total Bilirubin 0.6, Aspartate Amino Transf (AST/SGOT) 19, Alanine Aminotransferase (ALT/SGPT) 39, Alkaline Phosphatase 87, Pro-B-Type Natriuretic Peptide 1521H, Total Protein 6.8, Albumin 3.1L, Globulin 3.7, Albumin/Globulin Ratio 0.8L Current Medications Medications (Trade) Dose Ordered Sig/Livier Route PRN Reason Start Time Stop Time Status Last Admin Dose Admin Acetaminophen (Tylenol) 650 mg Q4H PRN ORAL Mild Pain/Temp > 100.5 09/18/19 17:45 10/18/19 17:44 09/19/19 17:22 Acetaminophen/ Hydrocodone Bitart ([place] 5/325) 1 tab Q6H PRN ORAL For Pain 09/19/19 22:00 09/26/19 21:59 09/19/19 22:30 Albuterol/ Ipratropium (Albuterol/ Ipratropium) 3 ml Q6H PRN HHN Shortness of Breath 09/18/19 15:30 09/23/19 15:29 Aspirin (ASA) 81 mg DAILY ORAL 09/18/19 14:30 10/18/19 14:29 09/20/19 09:41 Carvedilol (Coreg) 3.125 mg EVERY 12 HOURS ORAL 09/19/19 21:00 10/19/19 20:59 09/20/19 09:41 Docusate Sodium (Colace) 100 mg TWICE A DAY ORAL 09/18/19 18:00 10/18/19 17:59 09/20/19 09:41 Furosemide (Lasix) 40 mg DAILY IV 09/19/19 09:00 10/19/19 08:59 09/20/19 09:42 Heparin Sodium (Porcine) (Heparin 5000 units/ml) 5,000 units EVERY 12 HOURS SUBQ 09/18/19 21:00 10/18/19 20:59 09/20/19 09:42 Lisinopril (ZestriL) 10 mg DAILY ORAL 09/20/19 09:00 10/20/19 08:59 09/20/19 09:41 Geneva Nieto MD Sep 20, 2019 10:56
--- NOTE | 2019-09-20 11:08 | Infectious Diseases Prog Note ---
Assessment/Plan Assessment/Plan Abx: None Assessment: Pulmonary congestion, New- onset CHF EF 25-30% -CXR: Enlargement of the cardiomediastinal silhouette with pulmonary vasculature congestion and small left pleural effusion. Afebrile No leukocytosis Tobacco abuse Plan: -Continue to monitor off abx -f/u cx -Monitor CBC/CMP, temperatures -Cards f/u Thank you for this consultation. Will continue to follow along with you. Discussed with RN Subjective Allergies: Coded Allergies: No Known Allergies (Unverified , 09/18/19) Subjective afebrile no leukocytosis Objective Vital Signs Last 24 Hour Vital Signs Date Time Temp Pulse Resp B/P (MAP) Pulse Ox O2 Delivery O2 Flow Rate FiO2 09/20/19 09:41 93 140/105 09/20/19 09:41 140/105 09/20/19 09:24 98 Nasal Cannula 2.0 28 09/20/19 08:24 Nasal Cannula 1.0 09/20/19 08:00 1.0 09/20/19 08:00 99 09/20/19 08:00 96.7 93 20 140/105 (117) 95 09/20/19 04:22 97.5 90 20 138/100 (113) 94 09/20/19 04:02 84 09/20/19 04:01 1.0 09/20/19 00:00 1.0 09/20/19 00:00 97.0 90 20 143/99 (114) 100 09/20/19 00:00 83 09/19/19 21:42 100 109/100 09/19/19 21:00 Nasal Cannula 1.0 09/19/19 20:10 98 Nasal Cannula 2.0 28 09/19/19 20:00 97.9 100 20 109/100 (103) 100 09/19/19 20:00 1.0 09/19/19 20:00 97 09/19/19 16:00 92 09/19/19 16:00 96.4 69 20 128/73 (91) 98 09/19/19 16:00 2.0 09/19/19 12:00 97.3 85 20 136/93 (107) 98 09/19/19 12:00 94 09/19/19 12:00 2.0 Height (Feet): 5 Height (Inches): 7.00 Weight (Pounds): 150 Objective GENERAL: The patient is resting. He appears to be pretty comfortable. HEENT: PERRLA. EOMI. NECK: Supple. He has jugular venous distention approximately 10 cm above the angle of Rashaad at 30 degrees. LUNGS: He has crackles bilaterally at bases mostly. There is no wheezing. HEART: His PMI is in the sixth intercostal space in the anterior axillary line. His heart rate is high. There is positive S4 and there is physiologic split accented A2. ABDOMEN: Soft. There is no liver palpable. No hepatosplenomegaly. No masses. Bowel sounds are present. EXTREMITIES: Lower extremities, no edema. Distal pulses palpable. Microbiology Date/Time Source Procedure Growth Status 09/18/19 10:10 Blood Blood Culture - Preliminary NO GROWTH AFTER 24 HOURS Resulted 09/18/19 09:55 Blood Blood Culture - Preliminary NO GROWTH AFTER 24 HOURS Resulted 09/18/19 15:50 Nasal Nares - Final Complete 09/18/19 15:50 Nasal Nares - Final Complete 09/18/19 10:10 Nasal Nares - Final Complete 09/18/19 10:10 Nasal Nares - Final Complete Laboratory Tests Test 09/19/19 17:30 09/20/19 05:43 Troponin I 0.012 ng/mL (0.000-0.056) White Blood Count 8.9 K/UL (4.8-10.8) Red Blood Count 4.82 M/UL (4.70-6.10) Hemoglobin 15.3 G/DL (14.2-18.0) Hematocrit 44.4 % (42.0-52.0) Mean Corpuscular Volume 92 FL (80-99) Mean Corpuscular Hemoglobin 31.7 PG (27.0-31.0) H Mean Corpuscular Hemoglobin Concent 34.4 G/DL (32.0-36.0) Red Cell Distribution Width 11.8 % (11.6-14.8) Platelet Count 246 K/UL (150-450) Mean Platelet Volume 5.9 FL (6.5-10.1) L Neutrophils (%) (Auto) 49.8 % (45.0-75.0) Lymphocytes (%) (Auto) 34.0 % (20.0-45.0) Monocytes (%) (Auto) 9.6 % (1.0-10.0) Eosinophils (%) (Auto) 5.6 % (0.0-3.0) H Basophils (%) (Auto) 1.1 % (0.0-2.0) Sodium Level 141 MMOL/L (136-145) Potassium Level 3.8 MMOL/L (3.5-5.1) Chloride Level 104 MMOL/L (98-107) Carbon Dioxide Level 27 MMOL/L (21-32) Anion Gap 10 mmol/L (5-15) Blood Urea Nitrogen 21 mg/dL (7-18) H Creatinine 1.4 MG/DL (0.55-1.30) H Estimat Glomerular Filtration Rate 53.4 mL/min (>60) Glucose Level 136 MG/DL (74-106) H Calcium Level 8.8 MG/DL (8.5-10.1) Total Bilirubin 0.6 MG/DL (0.2-1.0) Aspartate Amino Transf (AST/SGOT) 19 U/L (15-37) Alanine Aminotransferase (ALT/SGPT) 39 U/L (12-78) Alkaline Phosphatase 87 U/L (46-116) Pro-B-Type Natriuretic Peptide 1521 pg/mL (0-125) H Total Protein 6.8 G/DL (6.4-8.2) Albumin 3.1 G/DL (3.4-5.0) L Globulin 3.7 g/dL Albumin/Globulin Ratio 0.8 (1.0-2.7) L Current Medications Medications (Trade) Dose Ordered Sig/Livier Route PRN Reason Start Time Stop Time Status Last Admin Dose Admin Acetaminophen (Tylenol) 650 mg Q4H PRN ORAL Mild Pain/Temp > 100.5 09/18/19 17:45 10/18/19 17:44 09/19/19 17:22 Acetaminophen/ Hydrocodone Bitart ([place] 5/325) 1 tab Q6H PRN ORAL For Pain 09/19/19 22:00 09/26/19 21:59 09/19/19 22:30 Albuterol/ Ipratropium (Albuterol/ Ipratropium) 3 ml Q6H PRN HHN Shortness of Breath 09/18/19 15:30 09/23/19 15:29 Aspirin (ASA) 81 mg DAILY ORAL 09/18/19 14:30 3/3/20 14:29 09/20/19 09:41 Carvedilol (Coreg) 3.125 mg EVERY 12 HOURS ORAL 09/19/19 21:00 10/19/19 20:59 09/20/19 09:41 Docusate Sodium (Colace) 100 mg TWICE A DAY ORAL 09/18/19 18:00 10/18/19 17:59 09/20/19 09:41 Furosemide (Lasix) 40 mg DAILY IV 09/19/19 09:00 10/19/19 08:59 09/20/19 09:42 Heparin Sodium (Porcine) (Heparin 5000 units/ml) 5,000 units EVERY 12 HOURS SUBQ 09/18/19 21:00 10/18/19 20:59 09/20/19 09:42 Lisinopril (ZestriL) 10 mg DAILY ORAL 09/20/19 09:00 10/20/19 08:59 09/20/19 09:41 Macy Cespedes M.D. Sep 20, 2019 11:07
--- NOTE | 2019-09-20 12:29 | Diagnostic Imaging Report ---
Indication: Dyspnea Comparison: 09/18/2019 A single view chest radiograph was obtained. Findings: No definite infiltrate or pulmonary vascular congestion identified. The heart is enlarged. The aorta is mildly enlarged consistent with atherosclerotic vascular disease. The bones are osteopenic. Impression: No acute disease
--- NOTE | 2019-09-20 13:20 | General Progress Note ---
Assessment/Plan Problem List: (1) Pleural effusion ICD Codes: J90 - Pleural effusion, not elsewhere classified SNOMED: 30334300 (2) New onset of congestive heart failure ICD Codes: I50.9 - Heart failure, unspecified SNOMED: 93876972 (3) Cardiac LV ejection fraction 21-30% ICD Codes: R93.1 - Abnormal findings on diagnostic imaging of heart and coronary circulation SNOMED: 06300692, 565479700 (4) COPD (chronic obstructive pulmonary disease) ICD Codes: J44.9 - Chronic obstructive pulmonary disease, unspecified SNOMED: 31439207 Status: stable, progressing Assessment/Plan: o2 pulm tx cardio f/u cbc bmp am dc plan Subjective Constitutional: Reports: weakness Allergies: Coded Allergies: No Known Allergies (Unverified , 09/18/19) All Systems: reviewed and negative except above Subjective sl sob Objective Last 24 Hour Vital Signs Date Time Temp Pulse Resp B/P (MAP) Pulse Ox O2 Delivery O2 Flow Rate FiO2 09/20/19 12:00 1.0 09/20/19 12:00 97.9 78 20 125/94 (104) 98 09/20/19 09:41 93 140/105 09/20/19 09:41 140/105 09/20/19 09:24 98 Nasal Cannula 2.0 28 09/20/19 08:24 Nasal Cannula 1.0 09/20/19 08:00 1.0 09/20/19 08:00 99 09/20/19 08:00 96.7 93 20 140/105 (117) 95 09/20/19 04:22 97.5 90 20 138/100 (113) 94 09/20/19 04:02 84 09/20/19 04:01 1.0 09/20/19 00:00 1.0 09/20/19 00:00 97.0 90 20 143/99 (114) 100 09/20/19 00:00 83 09/19/19 21:42 100 109/100 09/19/19 21:00 Nasal Cannula 1.0 09/19/19 20:10 98 Nasal Cannula 2.0 28 09/19/19 20:00 97.9 100 20 109/100 (103) 100 09/19/19 20:00 1.0 09/19/19 20:00 97 09/19/19 16:00 92 09/19/19 16:00 96.4 69 20 128/73 (91) 98 09/19/19 16:00 2.0 Intake and Output 09/19/19 09/20/19 19:00 07:00 Intake Total 480 ml 400 ml Balance 480 ml 400 ml Intake Oral 480 ml 400 ml # Voids 4 2 Laboratory Tests 09/19/19 17:30: Troponin I 0.012 09/20/19 05:43: White Blood Count 8.9, Red Blood Count 4.82, Hemoglobin 15.3, Hematocrit 44.4, Mean Corpuscular Volume 92, Mean Corpuscular Hemoglobin 31.7H, Mean Corpuscular Hemoglobin Concent 34.4, Red Cell Distribution Width 11.8, Platelet Count 246, Mean Platelet Volume 5.9L, Neutrophils (%) (Auto) 49.8, Lymphocytes (%) (Auto) 34.0, Monocytes (%) (Auto) 9.6, Eosinophils (%) (Auto) 5.6H, Basophils (%) (Auto ) 1.1, Sodium Level 141, Potassium Level 3.8, Chloride Level 104, Carbon Dioxide Level 27, Anion Gap 10, Blood Urea Nitrogen 21H, Creatinine 1.4H, Estimat Glomerular Filtration Rate 53.4, Glucose Level 136H, Calcium Level 8.8, Total Bilirubin 0.6, Aspartate Amino Transf (AST/SGOT) 19, Alanine Aminotransferase (ALT/SGPT) 39, Alkaline Phosphatase 87, Pro-B-Type Natriuretic Peptide 1521H, Total Protein 6.8, Albumin 3.1L, Globulin 3.7, Albumin/Globulin Ratio 0.8L Height (Feet): 5 Height (Inches): 7.00 Weight (Pounds): 150 General Appearance: lethargic EENT: normal ENT inspection Neck: normal alignment Cardiovascular: normal peripheral pulses, normal rate, regular rhythm Respiratory/Chest: chest wall non-tender, lungs clear, normal breath sounds Abdomen: normal bowel sounds, non tender, soft Extremities: normal inspection Edema: no edema noted Arm (L), no edema noted Arm (R), no edema noted Leg (L), no edema noted Leg (R), no edema noted Pedal (L), no edema noted Pedal (R), no edema noted Generalized Neurologic: responsive, motor weakness Skin: normal pigmentation, warm/dry Philip Lin DO Sep 20, 2019 13:20
--- NOTE | 2019-09-20 14:16 | Cardiology Progress Note ---
Assessment/Plan Assessment/Plan chf cm mr htn diuretics to be continued echo partially personally reviewed on 09/19 acei increase dose as bp is poorly controlled some erratic reading on the bp recoreded yest on bb low dose mpi may be tomorrow or the next day Subjective Cardiovascular: Denies: chest pain, lightheadedness, palpitations Respiratory: Reports: SOB with excertion - some prince but is better was able to walk around the rn station without sob Subjective rn translated Objective Last 24 Hour Vital Signs Date Time Temp Pulse Resp B/P (MAP) Pulse Ox O2 Delivery O2 Flow Rate FiO2 09/20/19 12:00 76 09/20/19 12:00 1.0 09/20/19 12:00 97.9 78 20 125/94 (104) 98 09/20/19 09:41 93 140/105 09/20/19 09:41 140/105 09/20/19 09:24 98 Nasal Cannula 2.0 28 09/20/19 08:24 Nasal Cannula 1.0 09/20/19 08:00 1.0 09/20/19 08:00 99 09/20/19 08:00 96.7 93 20 140/105 (117) 95 09/20/19 04:22 97.5 90 20 138/100 (113) 94 09/20/19 04:02 84 09/20/19 04:01 1.0 09/20/19 00:00 1.0 09/20/19 00:00 97.0 90 20 143/99 (114) 100 09/20/19 00:00 83 09/19/19 21:42 100 109/100 09/19/19 21:00 Nasal Cannula 1.0 09/19/19 20:10 98 Nasal Cannula 2.0 28 09/19/19 20:00 97.9 100 20 109/100 (103) 100 09/19/19 20:00 1.0 09/19/19 20:00 97 09/19/19 16:00 92 09/19/19 16:00 96.4 69 20 128/73 (91) 98 09/19/19 16:00 2.0 General Appearance: no apparent distress, alert Neck: supple Cardiovascular: normal rate Respiratory/Chest: crackles/rales - left base Abdomen: normal bowel sounds, non tender, soft Extremities: no swelling Intake and Output 09/19/19 09/20/19 19:00 07:00 Intake Total 480 ml 400 ml Balance 480 ml 400 ml Intake Oral 480 ml 400 ml # Voids 4 2 Laboratory Tests Test 09/19/19 17:30 09/20/19 05:43 Troponin I 0.012 ng/mL (0.000-0.056) White Blood Count 8.9 K/UL (4.8-10.8) Red Blood Count 4.82 M/UL (4.70-6.10) Hemoglobin 15.3 G/DL (14.2-18.0) Hematocrit 44.4 % (42.0-52.0) Mean Corpuscular Volume 92 FL (80-99) Mean Corpuscular Hemoglobin 31.7 PG (27.0-31.0) H Mean Corpuscular Hemoglobin Concent 34.4 G/DL (32.0-36.0) Red Cell Distribution Width 11.8 % (11.6-14.8) Platelet Count 246 K/UL (150-450) Mean Platelet Volume 5.9 FL (6.5-10.1) L Neutrophils (%) (Auto) 49.8 % (45.0-75.0) Lymphocytes (%) (Auto) 34.0 % (20.0-45.0) Monocytes (%) (Auto) 9.6 % (1.0-10.0) Eosinophils (%) (Auto) 5.6 % (0.0-3.0) H Basophils (%) (Auto) 1.1 % (0.0-2.0) Sodium Level 141 MMOL/L (136-145) Potassium Level 3.8 MMOL/L (3.5-5.1) Chloride Level 104 MMOL/L (98-107) Carbon Dioxide Level 27 MMOL/L (21-32) Anion Gap 10 mmol/L (5-15) Blood Urea Nitrogen 21 mg/dL (7-18) H Creatinine 1.4 MG/DL (0.55-1.30) H Estimat Glomerular Filtration Rate 53.4 mL/min (>60) Glucose Level 136 MG/DL (74-106) H Calcium Level 8.8 MG/DL (8.5-10.1) Total Bilirubin 0.6 MG/DL (0.2-1.0) Aspartate Amino Transf (AST/SGOT) 19 U/L (15-37) Alanine Aminotransferase (ALT/SGPT) 39 U/L (12-78) Alkaline Phosphatase 87 U/L (46-116) Pro-B-Type Natriuretic Peptide 1521 pg/mL (0-125) H Total Protein 6.8 G/DL (6.4-8.2) Albumin 3.1 G/DL (3.4-5.0) L Globulin 3.7 g/dL Albumin/Globulin Ratio 0.8 (1.0-2.7) L Microbiology Date/Time Source Procedure Growth Status 09/18/19 10:10 Blood Blood Culture - Preliminary NO GROWTH AFTER 24 HOURS Resulted 09/18/19 09:55 Blood Blood Culture - Preliminary NO GROWTH AFTER 24 HOURS Resulted 09/18/19 15:50 Nasal Nares - Final Complete 09/18/19 15:50 Nasal Nares - Final Complete 09/18/19 10:10 Nasal Nares - Final Complete 09/18/19 10:10 Nasal Nares - Final Complete Abhijit Robledo MD Sep 20, 2019 14:16
[2019-09-20] MEDS: Lisinopril 20mg tab ORAL SCH (17:22)
--- NOTE | 2019-09-20 19:22 | NUR ---
HAND-OFF: Report given to TERESA Funes.
--- NOTE | 2019-09-20 19:57 | NUR ---
NURSE NOTES: Received report from TERESA Storey, pt. in bed awake, A/O x's4 able to make needs known, no signs or symptoms of acute cardiac or respiratory distress noted, bed alarm on, side rails up x's3 and safety brakes engaged, pt. has 2L NC and appears to be sating well- no distress noted, tp. is aware he is NPO at midnight, pt. appears to be resting comfortably, left AC 20G IV intact and patent, safety measures continued will continue with plan of care.
[2019-09-21] VITALS: BP 133/85
[2019-09-21 04:00] VITALS: BP 123/77
[2019-09-21 06:58] LABS: EOSINOPHILS % (AUTO) 6.9 % (0.0-3.0); HEMATOCRIT 45.9 % (42.0-52.0); HEMOGLOBIN 16.1 G/DL (14.2-18.0); LYMPHOCYTES % (AUTO) 36.1 % (20.0-45.0); MEAN CORPUSCULAR VOLUME 91 FL (80-99); MONOCYTES % (AUTO) 9.6 % (1.0-10.0); NEUTROPHILS % (AUTO) 46.4 % (45.0-75.0); PLATELET COUNT 267 K/UL (150-450); RED BLOOD COUNT 5.05 M/UL (4.70-6.10); RED CELL DISTRIBUTION WIDTH 11.5 % (11.6-14.8); WHITE BLOOD COUNT 8.7 K/UL (4.8-10.8)
--- NOTE | 2019-09-21 07:04 | NUR ---
HAND-OFF: Report given to Sarbjit Crespo Rn, pt. remains stable and no signs of distress noted- aware pt is having stress test today and cardiology checklist for night has been complete.
[2019-09-21 07:36] LABS: ANION GAP 8 mmol/L (5-15); BLOOD UREA NITROGEN 20 mg/dL (7-18); CALCIUM 8.9 MG/DL (8.5-10.1); CARBON DIOXIDE 30 MMOL/L (21-32); CHLORIDE 103 MMOL/L (98-107); CREATININE 1.3 MG/DL (0.55-1.30); POTASSIUM 3.8 MMOL/L (3.5-5.1); SODIUM 141 MMOL/L (136-145)
[2019-09-21 08:00] VITALS: BP 144/103
[2019-09-21] MEDS: Aspirin Baby 81mg ORAL SCH (09:00)
[2019-09-21] MEDS: Docusate 100mg cap ORAL SCH ×2 (09:00→17:11)
[2019-09-21] MEDS: Lisinopril 20mg tab ORAL SCH ×3 (09:00→17:12)
[2019-09-21] MEDS: Heparin 5000 units/ml inj SUBQ SCH ×2 (09:00→20:41)
--- NOTE | 2019-09-21 09:29 | NUR ---
CASE MANAGEMENT:REVIEW 09/21/19 SI: NEW ONSET CHF W/EF 25-30%. PLEURAL EFF 97.0 83 16 144/103 99% ON 1L/NC BUN+20 IS: LISINOPRIL PO BID COREG PO Q12 IV LASIX QD HEPARIN SQ Q12 : TELEMETRY STATUS DCP: FROM HOME PLAN: TREADMILL STRESS TEST
--- NOTE | 2019-09-21 10:22 | General Progress Note ---
Assessment/Plan Problem List: (1) Pleural effusion ICD Codes: J90 - Pleural effusion, not elsewhere classified SNOMED: 78964034 (2) New onset of congestive heart failure ICD Codes: I50.9 - Heart failure, unspecified SNOMED: 87711431 (3) Cardiac LV ejection fraction 21-30% ICD Codes: R93.1 - Abnormal findings on diagnostic imaging of heart and coronary circulation SNOMED: 97728087, 633481386 (4) COPD (chronic obstructive pulmonary disease) ICD Codes: J44.9 - Chronic obstructive pulmonary disease, unspecified SNOMED: 87570151 Status: stable, progressing Assessment/Plan: o2 pulm tx cardio f/u cbc bmp am dc plan Subjective Constitutional: Reports: weakness Allergies: Coded Allergies: No Known Allergies (Unverified , 09/18/19) All Systems: reviewed and negative except above Subjective sl sob congested Objective Last 24 Hour Vital Signs Date Time Temp Pulse Resp B/P (MAP) Pulse Ox O2 Delivery O2 Flow Rate FiO2 09/21/19 08:00 97.0 83 16 144/103 (117) 99 09/21/19 07:42 68 09/21/19 07:37 Nasal Cannula 1.0 09/21/19 04:00 98.0 72 16 123/77 (92) 96 09/21/19 04:00 2.0 09/21/19 03:27 92 09/21/19 00:00 2.0 09/21/19 00:00 98.0 76 18 133/85 (101) 98 09/20/19 23:31 71 09/20/19 21:00 Nasal Cannula 1.0 09/20/19 20:59 94 144/98 09/20/19 20:00 97 Nasal Cannula 2.0 28 09/20/19 20:00 97.2 94 18 144/98 (113) 98 09/20/19 20:00 2.0 09/20/19 19:53 100 09/20/19 17:22 134/101 09/20/19 16:00 1.0 09/20/19 16:00 97.3 84 20 134/101 (112) 100 09/20/19 16:00 78 09/20/19 12:00 76 09/20/19 12:00 1.0 09/20/19 12:00 97.9 78 20 125/94 (104) 98 Intake and Output 09/20/19 09/21/19 18:59 06:59 Intake Total 750 ml Balance 750 ml Intake Oral 750 ml # Voids 3 2 Laboratory Tests 09/21/19 05:40: White Blood Count 8.7, Red Blood Count 5.05, Hemoglobin 16.1, Hematocrit 45.9, Mean Corpuscular Volume 91, Mean Corpuscular Hemoglobin 31.8H, Mean Corpuscular Hemoglobin Concent 34.9, Red Cell Distribution Width 11.5L, Platelet Count 267, Mean Platelet Volume 5.6L, Neutrophils (%) (Auto) 46.4, Lymphocytes (%) (Auto) 36.1, Monocytes (%) (Auto) 9.6, Eosinophils (%) (Auto) 6.9H, Basophils (%) (Auto ) 1.0, Sodium Level 141, Potassium Level 3.8, Chloride Level 103, Carbon Dioxide Level 30, Anion Gap 8, Blood Urea Nitrogen 20H, Creatinine 1.3, Estimat Glomerular Filtration Rate 58.2, Glucose Level 109H, Calcium Level 8.9 Height (Feet): 5 Height (Inches): 7.00 Weight (Pounds): 179 General Appearance: lethargic EENT: normal ENT inspection Neck: normal alignment Cardiovascular: normal peripheral pulses, normal rate, regular rhythm Respiratory/Chest: chest wall non-tender, decreased breath sounds Abdomen: normal bowel sounds, non tender, soft Extremities: normal inspection Edema: no edema noted Arm (L), no edema noted Arm (R), no edema noted Leg (L), no edema noted Leg (R), no edema noted Pedal (L), no edema noted Pedal (R), no edema noted Generalized Neurologic: responsive, motor weakness Skin: normal pigmentation, warm/dry Philip Lin DO Sep 21, 2019 10:22
[2019-09-21 12:00] VITALS: BP 136/107
--- NOTE | 2019-09-21 12:06 | Infectious Diseases Prog Note ---
Assessment/Plan Assessment/Plan Abx: None Assessment: Pulmonary congestion, New- onset CHF EF 25-30% -CXR: Enlargement of the cardiomediastinal silhouette with pulmonary vasculature congestion and small left pleural effusion. -Bcx NTD Afebrile No leukocytosis Tobacco abuse Plan: -Continue to monitor off abx -f/u cx -Monitor CBC/CMP, temperatures -Cards f/u Thank you for this consultation. Will continue to follow along with you. Discussed with RN Subjective Allergies: Coded Allergies: No Known Allergies (Unverified , 09/18/19) Subjective afebrile no leukocytosis Bcx NTD Objective Vital Signs Last 24 Hour Vital Signs Date Time Temp Pulse Resp B/P (MAP) Pulse Ox O2 Delivery O2 Flow Rate FiO2 09/21/19 08:00 2.0 09/21/19 08:00 97.0 83 16 144/103 (117) 99 09/21/19 07:42 68 09/21/19 07:37 Nasal Cannula 1.0 09/21/19 04:00 98.0 72 16 123/77 (92) 96 09/21/19 04:00 2.0 09/21/19 03:27 92 09/21/19 00:00 2.0 09/21/19 00:00 98.0 76 18 133/85 (101) 98 09/20/19 23:31 71 09/20/19 21:00 Nasal Cannula 1.0 09/20/19 20:59 94 144/98 09/20/19 20:00 97 Nasal Cannula 2.0 28 09/20/19 20:00 97.2 94 18 144/98 (113) 98 09/20/19 20:00 2.0 09/20/19 19:53 100 09/20/19 17:22 134/101 09/20/19 16:00 1.0 09/20/19 16:00 97.3 84 20 134/101 (112) 100 09/20/19 16:00 78 Height (Feet): 5 Height (Inches): 7.00 Weight (Pounds): 179 Objective GENERAL: The patient is resting. He appears to be pretty comfortable. HEENT: PERRLA. EOMI. NECK: Supple. He has jugular venous distention approximately 10 cm above the angle of Rashaad at 30 degrees. LUNGS: He has crackles bilaterally at bases mostly. There is no wheezing. HEART: His PMI is in the sixth intercostal space in the anterior axillary line. His heart rate is high. There is positive S4 and there is physiologic split accented A2. ABDOMEN: Soft. There is no liver palpable. No hepatosplenomegaly. No masses. Bowel sounds are present. EXTREMITIES: Lower extremities, no edema. Distal pulses palpable. Microbiology Date/Time Source Procedure Growth Status 09/18/19 15:50 Nasal Nares - Final Complete 09/18/19 15:50 Nasal Nares - Final Complete Laboratory Tests Test 09/21/19 05:40 White Blood Count 8.7 K/UL (4.8-10.8) Red Blood Count 5.05 M/UL (4.70-6.10) Hemoglobin 16.1 G/DL (14.2-18.0) Hematocrit 45.9 % (42.0-52.0) Mean Corpuscular Volume 91 FL (80-99) Mean Corpuscular Hemoglobin 31.8 PG (27.0-31.0) H Mean Corpuscular Hemoglobin Concent 34.9 G/DL (32.0-36.0) Red Cell Distribution Width 11.5 % (11.6-14.8) L Platelet Count 267 K/UL (150-450) Mean Platelet Volume 5.6 FL (6.5-10.1) L Neutrophils (%) (Auto) 46.4 % (45.0-75.0) Lymphocytes (%) (Auto) 36.1 % (20.0-45.0) Monocytes (%) (Auto) 9.6 % (1.0-10.0) Eosinophils (%) (Auto) 6.9 % (0.0-3.0) H Basophils (%) (Auto) 1.0 % (0.0-2.0) Sodium Level 141 MMOL/L (136-145) Potassium Level 3.8 MMOL/L (3.5-5.1) Chloride Level 103 MMOL/L (98-107) Carbon Dioxide Level 30 MMOL/L (21-32) Anion Gap 8 mmol/L (5-15) Blood Urea Nitrogen 20 mg/dL (7-18) H Creatinine 1.3 MG/DL (0.55-1.30) Estimat Glomerular Filtration Rate 58.2 mL/min (>60) Glucose Level 109 MG/DL (74-106) H Calcium Level 8.9 MG/DL (8.5-10.1) Current Medications Medications (Trade) Dose Ordered Sig/Livier Route PRN Reason Start Time Stop Time Status Last Admin Dose Admin Acetaminophen (Tylenol) 650 mg Q4H PRN ORAL Mild Pain/Temp > 100.5 09/18/19 17:45 10/18/19 17:44 09/19/19 17:22 Acetaminophen/ Hydrocodone Bitart ([place] 5/325) 1 tab Q6H PRN ORAL For Pain 09/19/19 22:00 09/26/19 21:59 09/19/19 22:30 Albuterol/ Ipratropium (Albuterol/ Ipratropium) 3 ml Q6H PRN HHN Shortness of Breath 09/18/19 15:30 09/23/19 15:29 Aspirin (ASA) 81 mg DAILY ORAL 09/18/19 14:30 10/18/19 14:29 09/20/19 09:41 Carvedilol (Coreg) 3.125 mg EVERY 12 HOURS ORAL 09/19/19 21:00 10/19/19 20:59 09/20/19 20:59 Docusate Sodium (Colace) 100 mg TWICE A DAY ORAL 09/18/19 18:00 10/18/19 17:59 09/20/19 17:22 Furosemide (Lasix) 40 mg DAILY IV 09/19/19 09:00 10/19/19 08:59 09/20/19 09:42 Heparin Sodium (Porcine) (Heparin 5000 units/ml) 5,000 units EVERY 12 HOURS SUBQ 09/18/19 21:00 10/18/19 20:59 09/20/19 21:00 Lisinopril (PriniviL) 20 mg BID ORAL 09/20/19 18:00 10/20/19 17:59 09/20/19 17:22 Macy Cespedes M.D. Sep 21, 2019 12:06
[2019-09-21 16:00] VITALS: BP 143/113
--- NOTE | 2019-09-21 19:25 | NUR ---
HAND-OFF: Report given to AVINASH MOORE.
[2019-09-21 20:24] VITALS: BP 136/102
[2019-09-22] VITALS: BP 129/93
--- NOTE | 2019-09-22 00:41 | NUR ---
NURSE NOTES: Received patient from Kenny MOORE. Patient in bed, on room air, no signs of respiratory distress. Bed in low position, locked, bed alarm on, call light within reach.
[2019-09-22 04:00] VITALS: BP 126/91
[2019-09-22 07:07] LABS: BASOPHILS % (AUTO) 1.1 % (0.0-2.0); EOSINOPHILS % (AUTO) 7.3 % (0.0-3.0); HEMATOCRIT 45.8 % (42.0-52.0); HEMOGLOBIN 16.1 G/DL (14.2-18.0); MEAN CORPUSCULAR VOLUME 91 FL (80-99); MONOCYTES % (AUTO) 9.8 % (1.0-10.0); NEUTROPHILS % (AUTO) 43.7 % (45.0-75.0); PLATELET COUNT 276 K/UL (150-450); RED BLOOD COUNT 5.03 M/UL (4.70-6.10); RED CELL DISTRIBUTION WIDTH 11.5 % (11.6-14.8); WHITE BLOOD COUNT 7.5 K/UL (4.8-10.8)
[2019-09-22 07:14] LABS: ANION GAP 7 mmol/L (5-15); BLOOD UREA NITROGEN 20 mg/dL (7-18); CALCIUM 8.9 MG/DL (8.5-10.1); CARBON DIOXIDE 30 MMOL/L (21-32); CHLORIDE 105 MMOL/L (98-107); CREATININE 1.4 MG/DL (0.55-1.30); POTASSIUM 3.7 MMOL/L (3.5-5.1); SODIUM 142 MMOL/L (136-145)
[2019-09-22 08:00] VITALS: BP 131/86
[2019-09-22] MEDS: Lisinopril 20mg tab ORAL SCH (08:31)
[2019-09-22] MEDS: Docusate 100mg cap ORAL SCH (08:31)
[2019-09-22] MEDS: Aspirin Baby 81mg ORAL SCH (08:31)
[2019-09-22] MEDS: Heparin 5000 units/ml inj SUBQ SCH (08:32)
--- NOTE | 2019-09-22 09:34 | NUR ---
CASE MANAGEMENT:REVIEW 09/22/19 SI: NEW ONSET CHF W/EF 25-30%. PLEURAL EFF 96.3 79 20 131/86 97% ON RA BUN+20 CR+1.4 GLUCOSE+129 IS: LISINOPRIL PO BID COREG PO Q12 IV LASIX QD ASA PO QD HEPARIN SQ Q12 : TELEMETRY STATUS DCP: FROM HOME PLAN: TREADMILL STRESS TEST RESULTS PENDING DISCHARGE ONCE CLEARED BY ACCOUNT INSTALLATION SPECIALIST AND TELEVISION AGENT
--- NOTE | 2019-09-22 09:45 | Diagnostic Imaging Report ---
Indication: chest pain Technique: The study was conducted under the supervision of a chemical etching processor. Exercise on a treadmill utilizing (Mil protocol) followed by intravenous administration of 32.7 mCi of technetium 99m Myoview was performed. Three plane SPECT imaging of the heart was then performed. A resting study was performed as part of the one-day protocol with 10.9 mCi of technetium 99m myoview injected intravenously at that time. Three plane SPECT imaging of the heart was obtained. Comparison: None Clinical data: Resting heart rate: 83. Peak exercise heart rate: 121. 85% maximum predicted heart rate: 144 Resting BP: 150/116. Peak exercise BP: 140/113. Symptoms: No chest pain. Reason for stopping: Fatigue. 1. Clinical response: Non ischemic 2. Electrocardiographic response: Non ischemic Findings: The myocardial perfusion scan demonstrates no definite fixed or reversible perfusion defects. Left ventricular ejection fraction is low estimated at 41%. Left ventricular chamber appears mildly dilated. This may be confirmed on echocardiogram generalized global hypokinesis noted. IMPRESSION: No evidence of myocardial ischemia. LVEF estimated at 41% on this study. Note: The estimation of LVEF is limited on this examination. By experience, the computer program estimation of LVEF is usually overestimated. Global hypokinesis. Left ventricular dilatation
--- NOTE | 2019-09-22 11:37 | Infectious Diseases Prog Note ---
Assessment/Plan Assessment/Plan Abx: None Assessment: Pulmonary congestion, New- onset CHF EF 25-30% -CXR: Enlargement of the cardiomediastinal silhouette with pulmonary vasculature congestion and small left pleural effusion. -Bcx NTD Afebrile No leukocytosis Tobacco abuse Plan: -Continue to monitor off abx -f/u cx -Monitor CBC/CMP, temperatures -Cards f/u Thank you for this consultation. Will continue to follow along with you. Discussed with RN Subjective Allergies: Coded Allergies: No Known Allergies (Unverified , 09/18/19) Subjective afebrile no leukocytosis Bcx NTD Objective Vital Signs Last 24 Hour Vital Signs Date Time Temp Pulse Resp B/P (MAP) Pulse Ox O2 Delivery O2 Flow Rate FiO2 09/22/19 09:00 Room Air 09/22/19 08:31 131/86 09/22/19 08:31 79 131/86 09/22/19 08:00 96.3 79 20 131/86 (101) 97 09/22/19 07:46 68 09/22/19 04:00 96.3 68 20 126/91 (103) 97 09/22/19 04:00 86 09/22/19 00:00 97.2 82 20 129/93 (105) 95 09/22/19 00:00 80 09/21/19 20:37 79 136/102 09/21/19 20:24 97.4 79 20 136/102 (113) 96 09/21/19 20:08 Room Air 09/21/19 19:56 97 Nasal Cannula 2.0 28 09/21/19 19:51 85 09/21/19 17:12 143/113 09/21/19 16:00 97.7 88 16 143/113 (123) 99 09/21/19 15:59 105 09/21/19 14:20 150/103 09/21/19 12:00 97.7 92 16 136/107 (117) 99 09/21/19 11:52 63 Height (Feet): 5 Height (Inches): 7.00 Weight (Pounds): 179 Objective GENERAL: The patient is resting. He appears to be pretty comfortable. HEENT: PERRLA. EOMI. NECK: Supple. He has jugular venous distention approximately 10 cm above the angle of Rashaad at 30 degrees. LUNGS: He has crackles bilaterally at bases mostly. There is no wheezing. HEART: His PMI is in the sixth intercostal space in the anterior axillary line. His heart rate is high. There is positive S4 and there is physiologic split accented A2. ABDOMEN: Soft. There is no liver palpable. No hepatosplenomegaly. No masses. Bowel sounds are present. EXTREMITIES: Lower extremities, no edema. Distal pulses palpable. Laboratory Tests Test 09/22/19 05:38 White Blood Count 7.5 K/UL (4.8-10.8) Red Blood Count 5.03 M/UL (4.70-6.10) Hemoglobin 16.1 G/DL (14.2-18.0) Hematocrit 45.8 % (42.0-52.0) Mean Corpuscular Volume 91 FL (80-99) Mean Corpuscular Hemoglobin 31.9 PG (27.0-31.0) H Mean Corpuscular Hemoglobin Concent 35.1 G/DL (32.0-36.0) Red Cell Distribution Width 11.5 % (11.6-14.8) L Platelet Count 276 K/UL (150-450) Mean Platelet Volume 5.7 FL (6.5-10.1) L Neutrophils (%) (Auto) 43.7 % (45.0-75.0) L Lymphocytes (%) (Auto) 38.0 % (20.0-45.0) Monocytes (%) (Auto) 9.8 % (1.0-10.0) Eosinophils (%) (Auto) 7.3 % (0.0-3.0) H Basophils (%) (Auto) 1.1 % (0.0-2.0) Sodium Level 142 MMOL/L (136-145) Potassium Level 3.7 MMOL/L (3.5-5.1) Chloride Level 105 MMOL/L (98-107) Carbon Dioxide Level 30 MMOL/L (21-32) Anion Gap 7 mmol/L (5-15) Blood Urea Nitrogen 20 mg/dL (7-18) H Creatinine 1.4 MG/DL (0.55-1.30) H Estimat Glomerular Filtration Rate 53.4 mL/min (>60) Glucose Level 129 MG/DL (74-106) H Calcium Level 8.9 MG/DL (8.5-10.1) Current Medications Medications (Trade) Dose Ordered Sig/Livier Route PRN Reason Start Time Stop Time Status Last Admin Dose Admin Acetaminophen (Tylenol) 650 mg Q4H PRN ORAL Mild Pain/Temp > 100.5 09/18/19 17:45 10/18/19 17:44 09/19/19 17:22 Acetaminophen/ Hydrocodone Bitart ([place] 5/325) 1 tab Q6H PRN ORAL For Pain 09/19/19 22:00 09/26/19 21:59 09/19/19 22:30 Albuterol/ Ipratropium (Albuterol/ Ipratropium) 3 ml Q6H PRN HHN Shortness of Breath 09/18/19 15:30 09/23/19 15:29 Aspirin (ASA) 81 mg DAILY ORAL 09/18/19 14:30 10/18/19 14:29 09/22/19 08:31 Carvedilol (Coreg) 3.125 mg EVERY 12 HOURS ORAL 09/19/19 21:00 10/19/19 20:59 09/22/19 08:31 Docusate Sodium (Colace) 100 mg TWICE A DAY ORAL 09/18/19 18:00 10/18/19 17:59 09/22/19 08:31 Furosemide (Lasix) 40 mg DAILY IV 09/19/19 09:00 10/19/19 08:59 09/22/19 08:31 Heparin Sodium (Porcine) (Heparin 5000 units/ml) 5,000 units EVERY 12 HOURS SUBQ 09/18/19 21:00 10/18/19 20:59 09/22/19 08:32 Lisinopril (PriniviL) 20 mg BID ORAL 09/20/19 18:00 10/20/19 17:59 09/22/19 08:31 Macy Cespedes M.D. Sep 22, 2019 11:37
[2019-09-22] MEDS ORDERED: FUROSEMIDE40 MG ORAL ×2 (11:52→13:13)
[2019-09-22] MEDS ORDERED: COREG6.25 MG ORAL ×2 (11:53→13:13)
[2019-09-22] MEDS ORDERED: NORVASC2.5 MG ORAL ×2 (11:53→13:13)
[2019-09-22] MEDS ORDERED: LISINOPRIL20 MG ORAL (11:53)
[2019-09-22 12:00] VITALS: BP 119/82
[2019-09-22 12:13] VITALS: BP 119/82
--- NOTE | 2019-09-22 12:30 | General Progress Note ---
Assessment/Plan Problem List: (1) Pleural effusion ICD Codes: J90 - Pleural effusion, not elsewhere classified SNOMED: 55885872 (2) New onset of congestive heart failure ICD Codes: I50.9 - Heart failure, unspecified SNOMED: 99165107 (3) Cardiac LV ejection fraction 21-30% ICD Codes: R93.1 - Abnormal findings on diagnostic imaging of heart and coronary circulation SNOMED: 44531923, 627408180 (4) COPD (chronic obstructive pulmonary disease) ICD Codes: J44.9 - Chronic obstructive pulmonary disease, unspecified SNOMED: 65087742 Status: stable, progressing Assessment/Plan: o2 pulm tx cardio f/u dc if clear Subjective Constitutional: Reports: weakness Allergies: Coded Allergies: No Known Allergies (Unverified , 09/18/19) All Systems: reviewed and negative except above Subjective eating calm Objective Last 24 Hour Vital Signs Date Time Temp Pulse Resp B/P (MAP) Pulse Ox O2 Delivery O2 Flow Rate FiO2 09/22/19 12:13 72 119/82 09/22/19 12:00 96.3 72 20 119/82 (94) 97 09/22/19 09:00 Room Air 09/22/19 08:31 131/86 09/22/19 08:31 79 131/86 09/22/19 08:00 96.3 79 20 131/86 (101) 97 09/22/19 07:46 68 09/22/19 04:00 96.3 68 20 126/91 (103) 97 09/22/19 04:00 86 09/22/19 00:00 97.2 82 20 129/93 (105) 95 09/22/19 00:00 80 09/21/19 20:37 79 136/102 09/21/19 20:24 97.4 79 20 136/102 (113) 96 09/21/19 20:08 Room Air 09/21/19 19:56 97 Nasal Cannula 2.0 28 09/21/19 19:51 85 09/21/19 17:12 143/113 09/21/19 16:00 97.7 88 16 143/113 (123) 99 09/21/19 15:59 105 09/21/19 14:20 150/103 Intake and Output 09/21/19 09/22/19 19:00 07:00 Intake Total 490 ml Balance 490 ml Intake Oral 490 ml # Voids 2 2 Laboratory Tests 09/22/19 05:38: White Blood Count 7.5, Red Blood Count 5.03, Hemoglobin 16.1, Hematocrit 45.8, Mean Corpuscular Volume 91, Mean Corpuscular Hemoglobin 31.9H, Mean Corpuscular Hemoglobin Concent 35.1, Red Cell Distribution Width 11.5L, Platelet Count 276, Mean Platelet Volume 5.7L, Neutrophils (%) (Auto) 43.7L, Lymphocytes (%) (Auto) 38.0, Monocytes (%) (Auto) 9.8, Eosinophils (%) (Auto) 7.3H, Basophils (%) (Auto ) 1.1, Sodium Level 142, Potassium Level 3.7, Chloride Level 105, Carbon Dioxide Level 30, Anion Gap 7, Blood Urea Nitrogen 20H, Creatinine 1.4H, Estimat Glomerular Filtration Rate 53.4, Glucose Level 129H, Calcium Level 8.9 Height (Feet): 5 Height (Inches): 7.00 Weight (Pounds): 179 General Appearance: alert EENT: normal ENT inspection Neck: normal alignment Cardiovascular: normal peripheral pulses, normal rate, regular rhythm Respiratory/Chest: chest wall non-tender, lungs clear, normal breath sounds Abdomen: normal bowel sounds, non tender, soft Extremities: normal inspection Edema: no edema noted Arm (L), no edema noted Arm (R), no edema noted Leg (L), no edema noted Leg (R), no edema noted Pedal (L), no edema noted Pedal (R), no edema noted Generalized Neurologic: responsive, motor weakness Skin: normal pigmentation, warm/dry Philip Lin DO Sep 22, 2019 12:30
--- NOTE | 2019-09-22 13:08 | Pulmonology Progress Note ---
Assessment/Plan Problems: (1) New onset of congestive heart failure (2) Cardiac LV ejection fraction 21-30% (3) Pleural effusion (4) COPD (chronic obstructive pulmonary disease) Assessment/Plan getting betteer respiratory treatment titrate fio2 to sat of 92% titrate cardiac meds by cardiology ok to dc home Subjective ROS Limited/Unobtainable: No Constitutional: Reports: no symptoms HEENT: Repors: no symptoms Respiratory: Reports: no symptoms Allergies: Coded Allergies: No Known Allergies (Unverified , 09/18/19) Objective Last 24 Hour Vital Signs Date Time Temp Pulse Resp B/P (MAP) Pulse Ox O2 Delivery O2 Flow Rate FiO2 09/22/19 12:13 72 119/82 09/22/19 12:00 96.3 72 20 119/82 (94) 97 09/22/19 11:45 71 09/22/19 09:00 Room Air 09/22/19 08:31 131/86 09/22/19 08:31 79 131/86 09/22/19 08:00 96.3 79 20 131/86 (101) 97 09/22/19 07:46 68 09/22/19 04:00 96.3 68 20 126/91 (103) 97 09/22/19 04:00 86 09/22/19 00:00 97.2 82 20 129/93 (105) 95 09/22/19 00:00 80 09/21/19 20:37 79 136/102 09/21/19 20:24 97.4 79 20 136/102 (113) 96 09/21/19 20:08 Room Air 09/21/19 19:56 97 Nasal Cannula 2.0 28 09/21/19 19:51 85 09/21/19 17:12 143/113 09/21/19 16:00 97.7 88 16 143/113 (123) 99 09/21/19 15:59 105 09/21/19 14:20 150/103 Intake and Output 09/21/19 09/22/19 19:00 07:00 Intake Total 490 ml Balance 490 ml Intake Oral 490 ml # Voids 2 2 General Appearance: WD/WN, no acute distress HEENT: atraumatic Respiratory/Chest: chest wall non-tender, lungs clear Cardiovascular: normal peripheral pulses, regular rhythm Abdomen: normal bowel sounds, soft, non tender Extremities: no cyanosis, no clubbing Laboratory Tests 09/22/19 05:38: White Blood Count 7.5, Red Blood Count 5.03, Hemoglobin 16.1, Hematocrit 45.8, Mean Corpuscular Volume 91, Mean Corpuscular Hemoglobin 31.9H, Mean Corpuscular Hemoglobin Concent 35.1, Red Cell Distribution Width 11.5L, Platelet Count 276, Mean Platelet Volume 5.7L, Neutrophils (%) (Auto) 43.7L, Lymphocytes (%) (Auto) 38.0, Monocytes (%) (Auto) 9.8, Eosinophils (%) (Auto) 7.3H, Basophils (%) (Auto ) 1.1, Sodium Level 142, Potassium Level 3.7, Chloride Level 105, Carbon Dioxide Level 30, Anion Gap 7, Blood Urea Nitrogen 20H, Creatinine 1.4H, Estimat Glomerular Filtration Rate 53.4, Glucose Level 129H, Calcium Level 8.9 Current Medications Medications (Trade) Dose Ordered Sig/Livier Route PRN Reason Start Time Stop Time Status Last Admin Dose Admin Acetaminophen (Tylenol) 650 mg Q4H PRN ORAL Mild Pain/Temp > 100.5 09/18/19 17:45 10/18/19 17:44 09/19/19 17:22 Acetaminophen/ Hydrocodone Bitart ([place] 5/325) 1 tab Q6H PRN ORAL For Pain 09/19/19 22:00 09/26/19 21:59 09/19/19 22:30 Albuterol/ Ipratropium (Albuterol/ Ipratropium) 3 ml Q6H PRN HHN Shortness of Breath 09/18/19 15:30 09/23/19 15:29 Amlodipine Besylate (Norvasc) 2.5 mg DAILY ORAL 09/23/19 09:00 10/23/19 08:59 Amlodipine Besylate (Norvasc) 2.5 mg ONCE ORAL 09/22/19 12:00 09/22/19 13:30 09/22/19 12:13 Aspirin (ASA) 81 mg DAILY ORAL 09/18/19 14:30 10/18/19 14:29 09/22/19 08:31 Carvedilol (Coreg) 6.25 mg EVERY 12 HOURS ORAL 09/22/19 21:00 3/7/20 20:59 Docusate Sodium (Colace) 100 mg TWICE A DAY ORAL 09/18/19 18:00 10/18/19 17:59 09/22/19 08:31 Furosemide (Lasix) 40 mg DAILY ORAL 09/23/19 09:00 10/23/19 08:59 Heparin Sodium (Porcine) (Heparin 5000 units/ml) 5,000 units EVERY 12 HOURS SUBQ 09/18/19 21:00 10/18/19 20:59 09/22/19 08:32 Influenza Virus Vaccine Quadrival (Flu Vaccine) 0.5 ml ONCE ONCE IM 09/22/19 13:30 09/22/19 13:31 09/22/19 12:46 Lisinopril (PriniviL) 40 mg DAILY ORAL 09/23/19 09:00 10/23/19 08:59 Geneva Nieto MD Sep 22, 2019 13:08
[2019-09-22] MEDS ORDERED: PRINIVIL20 MG ORAL (13:13)
[2019-09-22] MEDS ORDERED: ASPIRIN81 MG ORAL (13:13)
--- NOTE | 2019-09-22 13:44 | NUR ---
NURSE NOTES: pt awake alert, no distress. no sob. no c/o pain. call light iwhtin reach. will monitor. awaiting rx from pharmacy across the street pt aware of dc plan go home today. iv removed from left ac 20g no bleeding. pt has all belongings.
--- NOTE | 2019-09-22 14:23 | NUR ---
NURSE NOTES: pt left in stable condition, pt picked up by friend. med instructions explained by fellow RN in sw[place]ish. pt verbalized understanding.
[2019-09-22] MEDS ORDERED: Carvedilol 6.25mg Tab ORAL SCH (21:00)
[2019-09-23] MEDS ORDERED: Lisinopril 20mg tab ORAL SCH (09:00)
[2019-09-23] MEDS ORDERED: Furosemide 40mg tab ORAL SCH (09:00)
--- NOTE | 2019-09-23 22:24 | Discharge Summary ---
Discharge Summary Discharge Summary _ DATE OF ADMISSION: 09/18/2019 DATE OF DISCHARGE: 09/22/2019 DISCHARGED BY: Dr Lin REASON FOR ADMISSION: 53 years old male with no significant past medical history, presented with difficulty breathing and cough for 2 weeks. No recent traveling. Chest x-ray revealed small pleural effusion and cardiomegaly. Clinical examination revealed bibasilar crackles. Troponin was negative. pro BNP 2168. EKG revealed sinus rhythm, no acute ischemic changes. Laboratory work-up revealed no leukocytosis, stable hemoglobin and hematocrit. Stable electrolytes and renal parameters. Lactic acid 1.3. Patient received diuretic and admitted to telemetry floor for further management. CONSULTANTS: visual merchandiser Dr. Robledo pulmonary Dr. Nieto ID specialist Dr. Cespedes [facility] COURSE: Patient admitted to telemetry floor. Echocardiogram demonstrated mild global left ventricular hypokinesis with left ventricular ejection fraction estimated to be 25 to 30%. Mild left ventricular hypertrophy noted. Findings of suggestive increased right atrial pressure. Moderate to severe mitral regurgitation. Right ventricular systolic pressure of 44 consistent with a moderate pulmonary hypertension. Guideline directed medical therapy for congestive heart failure provided with beta-julien , NAMITA inhibitor and diuretic. Patient started on antiplatelet therapy with aspirin. Patient undergone myocardial perfusion scan which revealed no evidence of myocardial ischemia. Left ventricular ejection fraction estimated to be 41% on this study. Supplemental oxygen provided and titrated to keep pulse oximetry above 92%. Pulmonary toilet provided as needed. Patient was counseled on smoking cessation. Patient declined nicotine patch. Patient remained afebrile , no leukocytosis. ID specialist recommended to hold off on antibiotics. Blood pressure was managed with beta-julien, calcium channel julien, NAMITA inhibitor and diuretics. DVT prophylaxis provided. Supportive care provided. Patient clinically stabilized and was ready for discharge. Patient will need outpatient follow-up with visual merchandiser. FINAL DIAGNOSES: Congestive heart failure , systolic, new onset, acute Cardiomyopathy with ejection fraction 25 to 20% Pleural effusion COPD Mitral regurgitation Hypertension Tobacco abuse DISCHARGE MEDICATIONS: See Medication Reconciliation list. DISCHARGE INSTRUCTIONS: Patient was discharged home. Follow-up with a primary care provider in 1 week. I have been assigned to dictate discharge summary for this account. I was not involved in the patient's management. Korina Haas NP Sep 23, 2019 22:24
== END 2019-09-22 14:24 | disposition home or self-care (01) | DRG 291 ==
LOC: EDBD 10:03 → EMR 11:40 → 2E 12:00 → EDBEDREQ 12:43
DX: I11.0 Hypertensive heart disease with heart failure (principal); I50.21 Acute systolic (congestive) heart failure; I34.0 Nonrheumatic mitral (valve) insufficiency; I27.20 Pulmonary hypertension, unspecified; I42.9 Cardiomyopathy, unspecified; F17.200 Nicotine dependence, unspecified, uncomplicated; Z79.82 Long term (current) use of aspirin; J44.9 Chronic obstructive pulmonary disease, unspecified
CPT/HCPCS: 36415; 71045; 78452; 80048; 80053; 80061; 81003; 82248; 82550; 82553; 83605; 83880; 84484; 85025; 85610; 85730; 86710; 87040; 90689; 93005; 93017; 93306; 96374; 99285